=== PATIENT | female | born 1940 | race Hispanic/Latino ===

== ENCOUNTER → 2020-01-07 | Outpatient (CLI) | payer OTHER, MEDICARE | END | disposition home or self-care (01) | LOC: RAH 08:49 | PROVIDERS: ATTEND Internal Medicine | DX: Z01.818 Encounter for other preprocedural examination (principal) | CPT/HCPCS: 71046 ==

== ENCOUNTER 2020-06-23 09:00 | Emergency (ER) | payer OTHER, MEDICARE ==
[2020-06-23 09:28] LABS: ABG BASE EXCESS -7.3 mmol/L (-2.0-3.0); ABG HCO3 16.6 mmol/L (21.0-28.0); ABG OXYGEN SATURATION 96.1 % (95.0-99.0); ABG PCO2 30 mmHg (32-45)
[2020-06-23 09:44] LABS: BASOPHILS % (AUTO) 0.3 % (0.0-5.0); EOSINOPHILS % (AUTO) 0.3 % (0.0-8.0); HEMATOCRIT 41.3 % (36-48); LYMPHOCYTES % (AUTO) 30.2 % (21.0-51.0); MEAN CORPUSCULAR HEMOGLOBIN 29.7 pg (27.0-33.0); MEAN CORPUSCULAR HGB CONC 32.4 g/dL (32.0-36.0); MEAN CORPUSCULAR VOLUME 91.6 fL (79-99); MONOCYTES % (AUTO) 10.1 % (3.0-13.0); NEUTROPHILS % (AUTO) 58.8 % (40.0-77.0); PLATELET COUNT (AUTO) 172 K/uL (130-400); RED BLOOD CELL COUNT(AUTO) 4.51 MIL/uL (4.00-5.50); RED CELL DISTRIBUTION WIDTH 14.4 % (11.0-15.5); WHITE BLOOD COUNT (AUTO) 6.5 K/uL (4.8-10.8)
[2020-06-23 10:01] LABS: INR 0.88 (0.85-1.15); PROTHROMBIN TIME 9.6 SEC (9.6-11.6)
[2020-06-23 10:03] LABS: ALBUMIN 3.7 g/dL (3.5-5.0); BILIRUBIN,TOTAL 0.5 mg/dL (0.2-1.0); CREATININE 1.4 mg/dL (0.5-1.5); POTASSIUM 3.9 mmol/L (3.5-5.1); TOTAL PROTEIN, SERUM 8.3 g/dL (6.0-8.3)
[2020-06-23 10:28] LABS: B-TYPE NATRIURETIC PEPTIDE 22 pg/mL (0-100)
[2020-06-23] MEDS ORDERED: AZITHROMYCIN 500MG+NS 250ML 250 ML IV ONE (11:21)
[2020-06-23] MEDS ORDERED: CEFTRIAXONE SODIUM 1 GM ONE (11:21)
[2020-06-23] MEDS ORDERED: DEXAMETHASONE SOD PHOSPHATE 4 MG/ML 1ML VIAL ONE (11:21)
[2020-06-23 12:00] LABS: APPEARANCE,URINE CLOUDY (CLEAR); BILIRUBIN,URINE NEGATIVE (NEGATIVE); COLOR,URINE YELLOW (YELLOW); GLUCOSE, URINE (UA) NEGATIVE (NEGATIVE); KETONES,URINE NEGATIVE (NEGATIVE); LEUKOCYTE ESTERASE ,URINE TRACE (NEGATIVE); NITRATE,URINE NEGATIVE (NEGATIVE); OCCULT BLOOD,URINE SMALL (NEGATIVE); PH,URINE 5.5 (5.0-8.0); PROTEIN,URINE TRACE mg/dL (NEGATIVE); UROBILINOGEN,URINE 0.2 mg/dL (0.2-1.0)
[2020-06-23 12:14] LABS: RBC,URINE 0-1 /HPF (0-1)
[2020-06-23 12:15] LABS: BACTERIA,URINE Moderate /HPF (None Seen); MUCUS,URINE Rare LPF (None Seen); SQUAMOUS EPITHELIAL CELL,UR Moderate /HPF (0-2)
== END 2020-06-23 16:26 | disposition home or self-care (01) ==
LOC: EDH 09:00
DX: U07.1 COVID-19 (principal); R19.7 Diarrhea, unspecified; E13.9 Other specified diabetes mellitus without complications; I10 Essential (primary) hypertension; E78.5 Hyperlipidemia, unspecified; E66.01 Morbid (severe) obesity due to excess calories; Z68.41 Body mass index [BMI] 40.0-44.9, adult
CPT/HCPCS: 36415; 36600; 71045; 80053; 81001; 82550; 82803; 83605 ×2; 83880; 84484; 85025; 85610; 85730; 87040 ×2; 87077 ×2; 87088; 87186 ×2; 87426; 93005; 96365; 96366; 96375; 99285; J0456; J0696; J1100

== ENCOUNTER 2020-11-25 23:09 | Emergency (ER) | payer OTHER, MEDICARE ==
[2020-11-25] MEDS ORDERED: SODIUM CHLORIDE 0.9% 500ML 500 ML IV ONE (23:10)
[2020-11-26] MEDS ORDERED: HYDROCODONE/ACETAMINOPHEN 5/325 MG TAB ONE (00:58)
[2020-11-26 01:21] LABS: BASOPHILS % (AUTO) 0.4 % (0.0-5.0); EOSINOPHILS % (AUTO) 6.4 % (0.0-8.0); HEMATOCRIT 35.3 % (36-48); LYMPHOCYTES % (AUTO) 12.5 % (21.0-51.0); MEAN CORPUSCULAR HEMOGLOBIN 31.9 pg (27.0-33.0); MEAN CORPUSCULAR HGB CONC 32.6 g/dL (32.0-36.0); MEAN CORPUSCULAR VOLUME 98.1 fL (79-99); MONOCYTES % (AUTO) 10.6 % (3.0-13.0); NEUTROPHILS % (AUTO) 69.8 % (40.0-77.0); PLATELET COUNT (AUTO) 328 K/uL (130-400); RED CELL DISTRIBUTION WIDTH 13.6 % (11.0-15.5); WHITE BLOOD COUNT (AUTO) 7.2 K/uL (4.8-10.8)
[2020-11-26 01:29] LABS: CREATININE 1.8 mg/dL (0.5-1.5); POTASSIUM 4.3 mmol/L (3.5-5.1)
[2020-11-26 01:35] LABS: BILIRUBIN,TOTAL 0.9 mg/dL (0.2-1.0); TOTAL PROTEIN, SERUM 7.5 g/dL (6.0-8.3)
[2020-11-26] MEDS ORDERED: SODIUM CHLORIDE 0.9% 1000ML 1,000 ML IV ONE (01:59)
[2020-11-26] MEDS ORDERED: IOHEXOL-350 75 ML VIAL IV ONE (02:24)
== END 2020-11-26 08:12 | disposition home or self-care (01) ==
LOC: EDH 23:09
DX: R59.0 Localized enlarged lymph nodes (principal); I10 Essential (primary) hypertension; E78.5 Hyperlipidemia, unspecified; E11.9 Type 2 diabetes mellitus without complications; E07.9 Disorder of thyroid, unspecified
CPT/HCPCS: 36415; 70491; 80053; 85025; 99285; J7040; Q9967; J7030

== ENCOUNTER 2021-07-15 10:43 | Emergency (ER) | payer OTHER, MEDICARE ==
[~2021-07-15] VITALS: Ht 162.6 cm; Wt 78.9 kg
[2021-07-15 11:11] LABS: CREATININE 1.2 mg/dL (0.5-1.5); POTASSIUM 4.3 mmol/L (3.5-5.1)
[2021-07-15 11:12] LABS: BASOPHILS % (AUTO) 0.7 % (0.0-5.0); EOSINOPHILS % (AUTO) 12.3 % (0.0-8.0); HEMATOCRIT 32.8 % (36-48); LYMPHOCYTES % (AUTO) 30.9 % (21.0-51.0); MEAN CORPUSCULAR HGB CONC 32.9 g/dL (32.0-36.0); MEAN CORPUSCULAR VOLUME 97.3 fL (79-99); MONOCYTES % (AUTO) 12.6 % (3.0-13.0); NEUTROPHILS % (AUTO) 43.2 % (40.0-77.0); PLATELET COUNT (AUTO) 215 K/uL (130-400); RED BLOOD CELL COUNT(AUTO) 3.37 MIL/uL (4.00-5.50); RED CELL DISTRIBUTION WIDTH 13.2 % (11.0-15.5)
[2021-07-15 11:16] LABS: ALBUMIN 3.4 g/dL (3.5-5.0); BILIRUBIN,TOTAL 0.5 mg/dL (0.2-1.0); TOTAL PROTEIN, SERUM 7.1 g/dL (6.0-8.3)
[2021-07-15 12:05] LABS: BASOPHILS % (MANUAL) 1 % (0-2); EOSINOPHILS % (MANUAL) 8 % (1-6); LYMPHOCYTES % (MANUAL) 35 % (22-44); MAN.DIFF COMMENT-IMPRESSION MANUAL DIFFERENTIAL; MONOCYTES % (MANUAL) 10 % (2-9); PLATELET MORPHOLOGY COMMENT ADEQUATE; SEGMENTED NEUTROPHILS % 46 % (40-70)
[2021-07-15 13:43] LABS: APPEARANCE,URINE Clear (CLEAR); BILIRUBIN,URINE Negative (NEGATIVE); COLOR,URINE Yellow (YELLOW); GLUCOSE, URINE (UA) Negative (NEGATIVE); KETONES,URINE Negative (NEGATIVE); LEUKOCYTE ESTERASE ,URINE Moderate (NEGATIVE); NITRATE,URINE Positive (NEGATIVE); OCCULT BLOOD,URINE Negative (NEGATIVE); PROTEIN,URINE Negative (NEGATIVE); UROBILINOGEN,URINE 0.2 mg/dL (0.2-1.0)
[2021-07-15 14:10] LABS: BACTERIA,URINE Many /HPF (None Seen); RBC,URINE 0-1 /HPF (0-1); SQUAMOUS EPITHELIAL CELL,UR Rare /HPF (0-2)
[2021-07-15 15:39] VITALS: BP 119/55
[2021-07-15] MEDS ORDERED: DIPH25 PO (16:18)
[2021-07-15] MEDS ORDERED: NITR100C4 PO (16:46)
== END 2021-07-15 17:03 | disposition home or self-care (01) ==
LOC: EDH 10:43
DX: L23.9 Allergic contact dermatitis, unspecified cause (principal); L98.9 Disorder of the skin and subcutaneous tissue, unspecified; I10 Essential (primary) hypertension; E78.00 Pure hypercholesterolemia, unspecified; Z96.651 Presence of right artificial knee joint
CPT/HCPCS: 36415; 71046; 80053; 81001; 84443; 85025; 85651; 86140; 87077; 87088; 87186

== ENCOUNTER → 2021-10-20 | Outpatient (CLI) | payer OTHER, MEDICARE ==
[~2021-10-20] MED LIST: DIPH25 PO; NITR100C4 PO
== END | disposition home or self-care (01) ==
LOC: RAH 13:41
PROVIDERS: ATTEND Internal Medicine
DX: M19.011 Primary osteoarthritis, right shoulder (principal); Z98.890 Other specified postprocedural states
CPT/HCPCS: 73030

== ENCOUNTER 2022-02-15 20:45 | Inpatient (IN) | payer OTHER, MEDICARE ==
[~2022-02-15] VITALS: Ht 165.1 cm; Wt 87.2 kg
[2022-02-15 22:26] LABS: BASOPHILS % (AUTO) 0.4 % (0.0-5.0); EOSINOPHILS % (AUTO) 2.6 % (0.0-8.0); HEMATOCRIT 32.9 % (36-48); LYMPHOCYTES % (AUTO) 21.4 % (21.0-51.0); MEAN CORPUSCULAR HEMOGLOBIN 30.6 pg (27.0-33.0); MEAN CORPUSCULAR VOLUME 89.9 fL (79-99); MONOCYTES % (AUTO) 5.8 % (3.0-13.0); PLATELET COUNT (AUTO) 276 K/uL (130-400); RED BLOOD CELL COUNT(AUTO) 3.66 MIL/uL (4.00-5.50); RED CELL DISTRIBUTION WIDTH 14.1 % (11.0-15.5); WHITE BLOOD COUNT (AUTO) 5.3 K/uL (4.8-10.8)
[2022-02-15 22:28] LABS: APPEARANCE,URINE SL CLOUDY (CLEAR); BILIRUBIN,URINE SMALL (NEGATIVE); COLOR,URINE YELLOW (YELLOW); GLUCOSE, URINE (UA) NEGATIVE (NEGATIVE); KETONES,URINE 5 mg/dL (NEGATIVE); LEUKOCYTE ESTERASE ,URINE SMALL (NEGATIVE); NITRATE,URINE POSITIVE (NEGATIVE); OCCULT BLOOD,URINE NEGATIVE (NEGATIVE); PH,URINE 5.5 (5.0-8.0); PROTEIN,URINE TRACE mg/dL (NEGATIVE)
[2022-02-15] MEDS ORDERED: DILTIAZEM 25MG INJ IVP ONE (22:30)
[2022-02-15 22:36] LABS: BACTERIA,URINE Many /HPF (None Seen); RBC,URINE None Seen /HPF (0-1); SQUAMOUS EPITHELIAL CELL,UR 0-2 /HPF (0-2); WBC,URINE 26-50 /HPF (0-1)
[2022-02-15 22:37] LABS: CREATININE 1.6 mg/dL (0.5-1.5); POTASSIUM 3.5 mmol/L (3.5-5.1)
[2022-02-15 22:49] LABS: ALBUMIN 2.2 g/dL (3.5-5.0); BILIRUBIN,TOTAL 0.4 mg/dL (0.2-1.0); THYROID STIMULATING HORMONE 3.43 uIU/mL (0.36-3.74); TOTAL PROTEIN, SERUM 7.3 g/dL (6.0-8.3)
[2022-02-15] MEDS ORDERED: CEFTRIAXONE 1G VIAL IVP ONE (23:00)
[2022-02-15] MEDS ORDERED: HYDRALAZINE 20MG/ML VIAL IV PRN (23:30)
[2022-02-15] MEDS ORDERED: ONDANSETRON 4MG INJ IV PRN (23:30)
[2022-02-15] MEDS ORDERED: MORPHINE 4 MG SYG IV PRN (23:30)
[2022-02-15] MEDS ORDERED: LACTULOSE 20 GM/30 ML UDCUP PO PRN (23:30)
[2022-02-15] MEDS: CEFTRIAXONE 1G VIAL IV SCH (23:30)
[2022-02-15] MEDS ORDERED: MAG/ALUM/SIMETH 30 ML UDCUP PO PRN (23:30)
[2022-02-15] MEDS ORDERED: ACETAMINOPHEN 325 MG TAB PO PRN ×2 (23:30)
[2022-02-16 00:09] LABS: CHOLESTEROL 159 mg/dL (<200); HDL CHOLESTEROL 23 mg/dL (35-85); LDL DIRECT 102 mg/dL (0-99); TRIGLYCERIDES 187 mg/dL (30-200)
[2022-02-16 06:28] LABS: HEMATOCRIT 32.4 % (36-48); MEAN CORPUSCULAR HEMOGLOBIN 29.8 pg (27.0-33.0); MEAN CORPUSCULAR HGB CONC 33.3 g/dL (32.0-36.0); MEAN CORPUSCULAR VOLUME 89.5 fL (79-99); RED BLOOD CELL COUNT(AUTO) 3.62 MIL/uL (4.00-5.50); RED CELL DISTRIBUTION WIDTH 14.2 % (11.0-15.5); WHITE BLOOD COUNT (AUTO) 4.6 K/uL (4.8-10.8)
[2022-02-16 06:38] LABS: CREATININE 1.4 mg/dL (0.5-1.5); POTASSIUM 3.3 mmol/L (3.5-5.1)
[2022-02-16] MEDS: INSULIN HUMULIN R 100 UNIT/ML 3ML SQ SCH ×4 (07:30→21:00)
[2022-02-16] MEDS ORDERED: DULO30CA52 PO (08:17)
[2022-02-16] MEDS ORDERED: SIMV40TA59 PO (08:17)
[2022-02-16] MEDS ORDERED: PRAM0.129 PO (08:17)
[2022-02-16] MEDS ORDERED: LEVO137C4 PO (08:17)
[2022-02-16] MEDS: METOPROLOL TARTRATE 25 MG TAB PO SCH ×2 (08:24→21:13)
[2022-02-16] MEDS: ENOXAPARIN SODIUM 80 MG/0.8 ML SQ SCH ×2 (08:25→21:13)
[2022-02-16] MEDS ORDERED: METOPROLOL TARTRATE 25 MG TAB PO SCH (09:00)
[2022-02-16] MEDS ORDERED: KCL 20 MEQ ERTAB PO PRN (09:30)
[2022-02-16] MEDS ORDERED: POTASSIUM CHLORIDE 20MEQ/100ML 100 ML IV PRN (09:30)
[2022-02-16] MEDS ORDERED: POTASSIUM CHLORIDE 10% ELIXIR 20 MEQ/15 ML UDCUP PO PRN (09:30)
[2022-02-16] MEDS ORDERED: LIDOCAINE HCL-MPF 1% 2ML VIAL IV PRN (09:30)
[2022-02-16] MEDS ORDERED: AMIODARONE 900MG VIAL 360 MG in DEXTROSE 5%-WATER 200 ML IV SCH (14:30)
[2022-02-16] MEDS ORDERED: AMIODARONE 900MG VIAL 540 MG in DEXTROSE 5%-WATER 300 ML IV SCH (14:30)
[2022-02-16] MEDS ORDERED: AMIODARONE 900MG VIAL 150 MG in DEXTROSE 5%-WATER 100 ML IV SCH (14:30)
[2022-02-16 19:45] VITALS: BP 108/65
[2022-02-16] MEDS: AMIODARONE 900MG VIAL 540 MG in DEXTROSE 5%-WATER 300 ML IV SCH (21:19)
[2022-02-16] MEDS: CEFTRIAXONE 1G VIAL IV SCH (23:36)
[2022-02-17] VITALS (12 sets, daily range): BP systolic 92–118; BP diastolic 43–69
[2022-02-17] MEDS ORDERED: LORAZEPAM 0.5 MG TABLET PO ONE
[2022-02-17] MEDS: INSULIN HUMULIN R 100 UNIT/ML 3ML SQ SCH ×4 (07:30→21:02)
[2022-02-17] MEDS: METOPROLOL TARTRATE 25 MG TAB PO SCH ×2 (09:00→20:59)
[2022-02-17 09:08] LABS: BASOPHILS % (AUTO) 0.5 % (0.0-5.0); EOSINOPHILS % (AUTO) 3.3 % (0.0-8.0); HEMATOCRIT 33.2 % (36-48); LYMPHOCYTES % (AUTO) 10.5 % (21.0-51.0); MEAN CORPUSCULAR HGB CONC 32.8 g/dL (32.0-36.0); MEAN CORPUSCULAR VOLUME 91.5 fL (79-99); MONOCYTES % (AUTO) 3.4 % (3.0-13.0); NEUTROPHILS % (AUTO) 79.6 % (40.0-77.0); PLATELET COUNT (AUTO) 320 K/uL (130-400); RED BLOOD CELL COUNT(AUTO) 3.63 MIL/uL (4.00-5.50); RED CELL DISTRIBUTION WIDTH 14.4 % (11.0-15.5); WHITE BLOOD COUNT (AUTO) 5.5 K/uL (4.8-10.8)
[2022-02-17 09:20] LABS: CREATININE 1.4 mg/dL (0.5-1.5); PHOSPHORUS 3.2 mg/dL (2.5-4.9); POTASSIUM 4.6 mmol/L (3.5-5.1)
[2022-02-17] MEDS: ENOXAPARIN SODIUM 80 MG/0.8 ML SQ SCH ×2 (10:08→20:58)
[2022-02-17] MEDS: AMIODARONE 200 MG TABLET PO SCH (17:02)
[2022-02-17] MEDS: AMIODARONE 900MG VIAL 540 MG in DEXTROSE 5%-WATER 300 ML IV SCH (17:38)
[2022-02-17] MEDS ORDERED: SIMVASTATIN 20 MG TABLET PO SCH (21:00)
[2022-02-17] MEDS ORDERED: PRAMIPEXOLE DI-HCL 0.25 MG TABLET PO SCH (21:00)
[2022-02-17] MEDS ORDERED: DULOXETINE HCL 30 MG CAP PO SCH (21:00)
[2022-02-17] MEDS: CEFTRIAXONE 1G VIAL IV SCH (23:35)
[2022-02-18 00:10] VITALS: BP 100/50
[2022-02-18 04:15] VITALS: BP 120/55
[2022-02-18 04:51] LABS: BASOPHILS % (AUTO) 0.3 % (0.0-5.0); EOSINOPHILS % (AUTO) 2.3 % (0.0-8.0); HEMATOCRIT 31.1 % (36-48); LYMPHOCYTES % (AUTO) 8.3 % (21.0-51.0); MEAN CORPUSCULAR HEMOGLOBIN 29.4 pg (27.0-33.0); MEAN CORPUSCULAR HGB CONC 32.5 g/dL (32.0-36.0); MEAN CORPUSCULAR VOLUME 90.7 fL (79-99); MONOCYTES % (AUTO) 2.6 % (3.0-13.0); NEUTROPHILS % (AUTO) 84.3 % (40.0-77.0); PLATELET COUNT (AUTO) 315 K/uL (130-400); RED BLOOD CELL COUNT(AUTO) 3.43 MIL/uL (4.00-5.50); RED CELL DISTRIBUTION WIDTH 14.5 % (11.0-15.5); WHITE BLOOD COUNT (AUTO) 7.7 K/uL (4.8-10.8)
[2022-02-18 04:59] LABS: CREATININE 1.3 mg/dL (0.5-1.5); POTASSIUM 3.9 mmol/L (3.5-5.1)
[2022-02-18] MEDS: INSULIN HUMULIN R 100 UNIT/ML 3ML SQ SCH ×3 (06:27→16:30)
[2022-02-18] MEDS ORDERED: LEVOTHYROXINE 25 MCG TABLET PO SCH (06:30)
[2022-02-18] MEDS ORDERED: LEVOTHYROXINE 112 MCG TABLET PO SCH (06:30)
[2022-02-18 08:27] VITALS: BP 96/52
[2022-02-18] MEDS: AMIODARONE 900MG VIAL 540 MG in DEXTROSE 5%-WATER 300 ML IV SCH (08:30)
[2022-02-18] MEDS: METOPROLOL TARTRATE 25 MG TAB PO SCH (09:00)
[2022-02-18] MEDS: ENOXAPARIN SODIUM 80 MG/0.8 ML SQ SCH (09:51)
[2022-02-18] MEDS: AMIODARONE 200 MG TABLET PO SCH (10:10)
[2022-02-18 12:16] VITALS: BP 96/38
[2022-02-18 16:00] VITALS: BP 100/58
[2022-02-18] MEDS ORDERED: APIX2.5T PO (17:46)
[2022-02-18] MEDS ORDERED: CEPH500B PO (17:46)
[2022-02-18] MEDS ORDERED: AMIO200T44 PO (17:46)
[2022-02-18] MEDS ORDERED: METO25 PO (17:46)
== END 2022-02-18 18:48 | disposition home or self-care (01) | DRG 309 ==
LOC: EDH 20:45 → EDHIP 23:20 → 4DH 02-16 20:17 → 2BH 02-17 08:26 → 2DH 02-17 16:39
PROVIDERS: ADMIT Hospitalist; ATTEND Hospitalist
DX: I48.91 Unspecified atrial fibrillation (principal); D68.59 Other primary thrombophilia; N39.0 Urinary tract infection, site not specified; M54.2 Cervicalgia; E11.65 Type 2 diabetes mellitus with hyperglycemia; Z20.822 Contact with and (suspected) exposure to COVID-19; E03.9 Hypothyroidism, unspecified; E78.00 Pure hypercholesterolemia, unspecified; B96.20 Unspecified Escherichia coli [E. coli] as the cause of diseases classified elsewhere; F41.9 Anxiety disorder, unspecified; Z85.810 Personal history of malignant neoplasm of tongue; Z85.89 Personal history of malignant neoplasm of other organs and systems
CPT/HCPCS: 36415; 71045; 80048; 80053; 80061; 81001; 82948; 83036; 83735; 83880; 84100; 84443; 84484; 85025; 85027; 87077; 87088; 87186; 87635; 92610; 93005; 93306; 93356; C9803; G0378; J0282; J0696; J1650; J1815; J7060

== ENCOUNTER 2022-08-22 16:00 | Emergency (ER) | payer OTHER, MEDICARE ==
[~2022-08-22] VITALS: Ht 165.1 cm; Wt 79.4 kg
[~2022-08-22 16:00] MED LIST changes: +AMIO200T44 PO; +APIX2.5T PO; +CEPH500B PO; -DIPH25 PO; +DULO30CA52 PO; +LEVO137C4 PO; +METO25 PO; -NITR100C4 PO; +PRAM0.129 PO; +SIMV40TA59 PO
[2022-08-22 17:18] LABS: MEAN CORPUSCULAR HEMOGLOBIN 31.1 pg (27.0-33.0); MEAN CORPUSCULAR HGB CONC 31.4 g/dL (32.0-36.0); MEAN CORPUSCULAR VOLUME 98.9 fL (79-99); RED BLOOD CELL COUNT(AUTO) 3.54 MIL/uL (4.00-5.50); RED CELL DISTRIBUTION WIDTH 14.9 % (11.0-15.5); WHITE BLOOD COUNT (AUTO) 5.8 K/uL (4.8-10.8)
[2022-08-22 17:30] LABS: CREATININE 1.2 mg/dL (0.5-1.5); POTASSIUM 4.2 mmol/L (3.5-5.1)
[2022-08-22 17:35] LABS: ALBUMIN 3.8 g/dL (3.5-5.0); TOTAL PROTEIN, SERUM 7.2 g/dL (6.0-8.3)
[2022-08-22 17:39] LABS: APPEARANCE,URINE CLEAR (CLEAR); BILIRUBIN,URINE NEGATIVE (NEGATIVE); COLOR,URINE LIGHT-YELLOW (YELLOW); GLUCOSE, URINE (UA) NEGATIVE (NEGATIVE); KETONES,URINE NEGATIVE (NEGATIVE); LEUKOCYTE ESTERASE ,URINE NEGATIVE Leu/uL (NEGATIVE); NITRATE,URINE NEGATIVE (NEGATIVE); OCCULT BLOOD,URINE NEGATIVE (NEGATIVE); PH,URINE 7.5 (5.0-8.0); PROTEIN,URINE NEGATIVE (NEGATIVE); UROBILINOGEN,URINE 0.2 mg/dL (0.2-1.0)
[2022-08-22] MEDS ORDERED: IOHEXOL 350 MG/ML 100ML INFUS..BTL IV ONE (22:17)
[2022-08-23 00:38] VITALS: BP 151/59
== END 2022-08-23 01:19 | disposition home or self-care (01) ==
LOC: EDH 16:00
DX: R06.00 Dyspnea, unspecified (principal); I10 Essential (primary) hypertension; E11.9 Type 2 diabetes mellitus without complications; Z85.9 Personal history of malignant neoplasm, unspecified; Z79.01 Long term (current) use of anticoagulants; Z90.49 Acquired absence of other specified parts of digestive tract; Z20.822 Contact with and (suspected) exposure to COVID-19
CPT/HCPCS: 99285; 71270; 71045; 87635; 84484; 80053; 83880; 85027; 85378; 87880; 87804 ×2; 81003; 36415; 93005; C9803; Q9967

== ENCOUNTER 2022-10-01 12:28 | Emergency (ER) | payer OTHER, MEDICARE ==
[~2022-10-01] VITALS: Ht 162.6 cm; Wt 79.4 kg
[2022-10-01 15:25] LABS: BASOPHILS % (AUTO) 0.9 % (0.0-5.0); EOSINOPHILS % (AUTO) 1.9 % (0.0-8.0); LYMPHOCYTES % (AUTO) 18.6 % (21.0-51.0); MEAN CORPUSCULAR HEMOGLOBIN 30.9 pg (27.0-33.0); MEAN CORPUSCULAR HGB CONC 31.4 g/dL (32.0-36.0); MEAN CORPUSCULAR VOLUME 98.7 fL (79-99); MONOCYTES % (AUTO) 9.7 % (3.0-13.0); NEUTROPHILS % (AUTO) 68.5 % (40.0-77.0); PLATELET COUNT (AUTO) 286 K/uL (130-400); RED BLOOD CELL COUNT(AUTO) 3.75 MIL/uL (4.00-5.50); RED CELL DISTRIBUTION WIDTH 15.3 % (11.0-15.5); WHITE BLOOD COUNT (AUTO) 6.9 K/uL (4.8-10.8)
[2022-10-01 15:30] VITALS: BP 138/66
[2022-10-01 15:33] LABS: CREATININE 1.1 mg/dL (0.5-1.5); POTASSIUM 3.7 mmol/L (3.5-5.1)
[2022-10-01 15:42] LABS: ALBUMIN 3.4 g/dL (3.5-5.0); TOTAL PROTEIN, SERUM 7.6 g/dL (6.0-8.3)
[2022-10-01 16:34] LABS: APPEARANCE,URINE CLEAR (CLEAR); BILIRUBIN,URINE NEGATIVE (NEGATIVE); COLOR,URINE LIGHT-YELLOW (YELLOW); GLUCOSE, URINE (UA) NEGATIVE (NEGATIVE); KETONES,URINE NEGATIVE (NEGATIVE); LEUKOCYTE ESTERASE ,URINE NEGATIVE Leu/uL (NEGATIVE); NITRATE,URINE NEGATIVE (NEGATIVE); OCCULT BLOOD,URINE NEGATIVE (NEGATIVE); PH,URINE 6.5 (5.0-8.0); PROTEIN,URINE NEGATIVE (NEGATIVE); UROBILINOGEN,URINE 0.2 mg/dL (0.2-1.0)
[2022-10-01 16:39] LABS: BACTERIA,URINE RARE /HPF (None Seen); RBC,URINE 0-1 /HPF (0-1); SQUAMOUS EPITHELIAL CELL,UR RARE /HPF (0-2); WBC,URINE 0-1 /HPF (0-1)
== END 2022-10-01 17:00 | disposition home or self-care (01) ==
LOC: EDH 12:28
DX: S01.111A Laceration without foreign body of right eyelid and periocular area, initial encounter (principal); S40.022A Contusion of left upper arm, initial encounter; S40.021A Contusion of right upper arm, initial encounter; I10 Essential (primary) hypertension; E11.9 Type 2 diabetes mellitus without complications; E03.9 Hypothyroidism, unspecified; F41.9 Anxiety disorder, unspecified; Z90.49 Acquired absence of other specified parts of digestive tract; Z96.651 Presence of right artificial knee joint; Z98.890 Other specified postprocedural states; W01.0XXA Fall on same level from slipping, tripping and stumbling without subsequent striking against object, initial encounter; Y93.02 Activity, running; Y92.39 Other specified sports and athletic area as the place of occurrence of the external cause; Y99.8 Other external cause status
CPT/HCPCS: 36415; 70450; 70486; 71045; 72125; 80053; 81001; 84484; 85025; 93005

== ENCOUNTER 2023-08-29 20:18 | Emergency (ER) | payer OTHER, MEDICARE | END 2023-08-29 22:16 | disposition left against medical advice (07) | LOC: EDH 20:18 | DX: R21 Rash and other nonspecific skin eruption (principal); Z53.21 Procedure and treatment not carried out due to patient leaving prior to being seen by health care provider ==

== ENCOUNTER 2023-12-23 17:09 | Emergency (ER) | payer OTHER, MEDICARE ==
[~2023-12-23] VITALS: Ht 160 cm; Wt 77.1 kg
[2023-12-23 18:16] LABS: BASOPHILS # (AUTO) 0.04 K/uL (0.00-0.20); BASOPHILS % (AUTO) 0.9 % (0.0-5.0); EOSINOPHILS % (AUTO) 4.3 % (0.0-8.0); HEMATOCRIT 29.1 % (36-48); IMMATURE GRANULOCYTE ABSOLUTE 0.01 K/uL (0-1); LYMPHOCYTES # (AUTO) 1.1 K/uL (1.0-4.8); LYMPHOCYTES % (AUTO) 23.8 % (21.0-51.0); MEAN CORPUSCULAR HEMOGLOBIN 30.2 pg (27.0-33.0); MEAN CORPUSCULAR HGB CONC 32.6 g/dL (32.0-36.0); MEAN CORPUSCULAR VOLUME 92.4 fL (79-99); MONOCYTES # (AUTO) 0.6 K/uL (0.1-1.0); MONOCYTES % (AUTO) 13.9 % (3.0-13.0); NEUTROPHILS # (AUTO) 2.6 K/uL (1.8-7.7); NEUTROPHILS % (AUTO) 56.9 % (40.0-77.0); PLATELET COUNT (AUTO) 244 K/uL (130-400); RED BLOOD CELL COUNT(AUTO) 3.15 MIL/uL (4.00-5.50); RED CELL DISTRIBUTION WIDTH 14.1 % (11.0-15.5); WHITE BLOOD COUNT (AUTO) 4.6 K/uL (4.8-10.8)
[2023-12-23 18:29] LABS: CREATININE 1.9 mg/dL (0.5-1.0); POTASSIUM 3.8 mmol/L (3.5-5.1)
[2023-12-23 18:34] LABS: ALBUMIN 3.3 g/dL (3.5-5.0); BILIRUBIN,TOTAL 0.5 mg/dL (0.2-1.0); MAGNESIUM 2.1 mg/dL (1.80-2.40); TOTAL PROTEIN, SERUM 7.1 g/dL (6.0-8.3)
[2023-12-23 18:36] LABS: B-TYPE NATRIURETIC PEPTIDE 149 pg/mL (0-100)
[2023-12-23] MEDS: FUROSEMIDE 100MG VIAL IVP ONE (18:40)
[2023-12-23 19:22] VITALS: BP 135/71; PULSE 75; RESP 20; O2SAT 99
== END 2023-12-23 19:58 | disposition home or self-care (01) ==
LOC: EDH 17:09
DX: M79.89 Other specified soft tissue disorders (principal); D63.1 Anemia in chronic kidney disease; E11.22 Type 2 diabetes mellitus with diabetic chronic kidney disease; N18.9 Chronic kidney disease, unspecified; I21.9 Acute myocardial infarction, unspecified; E03.9 Hypothyroidism, unspecified; E78.00 Pure hypercholesterolemia, unspecified; Z79.899 Other long term (current) drug therapy; Z90.49 Acquired absence of other specified parts of digestive tract; Z98.890 Other specified postprocedural states
CPT/HCPCS: 99285; 96374; 71045; 83735; 84484; 80053; 83880; 85025; 36415; 93005; J1940

== ENCOUNTER 2024-05-17 16:04 | Emergency (ER) | payer OTHER, MEDICARE ==
[~2024-05-17] VITALS: Ht 162.6 cm; Wt 94.8 kg
[~2024-05-17 16:04] MED LIST changes: +ACET-66 PO; -AMIO200T44 PO; -CEPH500B PO; +CHOL100040 PO; -DULO30CA52 PO; +FURO20TA4 PO; -LEVO137C4 PO; +LEVO137T2 PO; +OMEP20CA12 PO
[2024-05-17 16:06] VITALS: TEMP 98.2
[2024-05-17 16:31] LABS: BASOPHILS # (AUTO) 0.03 K/uL (0.00-0.20); BASOPHILS % (AUTO) 0.8 % (0.0-5.0); EOSINOPHILS # (AUTO) 0.16 K/uL (0.00-0.70); EOSINOPHILS % (AUTO) 4.5 % (0.0-8.0); HEMATOCRIT 30.3 % (36-48); LYMPHOCYTES # (AUTO) 1.4 K/uL (1.0-4.8); LYMPHOCYTES % (AUTO) 38.2 % (21.0-51.0); MEAN CORPUSCULAR HEMOGLOBIN 30.7 pg (27.0-33.0); MEAN CORPUSCULAR HGB CONC 32.7 g/dL (32.0-36.0); MEAN CORPUSCULAR VOLUME 94.1 fL (79-99); MONOCYTES # (AUTO) 0.5 K/uL (0.1-1.0); MONOCYTES % (AUTO) 14.2 % (3.0-13.0); NEUTROPHILS # (AUTO) 1.5 K/uL (1.8-7.7); NEUTROPHILS % (AUTO) 42.3 % (40.0-77.0); PLATELET COUNT (AUTO) 230 K/uL (130-400); RED BLOOD CELL COUNT(AUTO) 3.22 MIL/uL (4.00-5.50); RED CELL DISTRIBUTION WIDTH 14.1 % (11.0-15.5); WHITE BLOOD COUNT (AUTO) 3.6 K/uL (4.8-10.8)
[2024-05-17 16:43] LABS: CREATININE 1.8 mg/dL (0.5-1.0); POTASSIUM 3.5 mmol/L (3.5-5.1)
[2024-05-17 17:42] LABS: APPEARANCE,URINE CLEAR (CLEAR); BILIRUBIN,URINE NEGATIVE (NEGATIVE); COLOR,URINE YELLOW (YELLOW); GLUCOSE, URINE (UA) NEGATIVE (NEGATIVE); KETONES,URINE NEGATIVE (NEGATIVE); LEUKOCYTE ESTERASE ,URINE 250 Leu/uL (NEGATIVE); NITRATE,URINE NEGATIVE (NEGATIVE); PROTEIN,URINE 10 mg/dL (NEGATIVE); UROBILINOGEN,URINE 0.2 mg/dL (0.2-1.0)
[2024-05-17 17:43] LABS: ADD UA MICROSCOPIC YES
[2024-05-17 17:52] LABS: BACTERIA,URINE RARE /HPF (None Seen); MUCUS,URINE RARE LPF (None Seen); SQUAMOUS EPITHELIAL CELL,UR MOD /HPF (0-2)
[2024-05-17] MEDS: furoSEMIDE 40MG VIAL IV ONE (18:47)
[2024-05-17 19:12] VITALS: BP 133/41; PULSE 75; RESP 16; O2SAT 96
== END 2024-05-17 19:59 | disposition home or self-care (01) ==
LOC: EDH 16:04
DX: R60.0 Localized edema (principal); E11.9 Type 2 diabetes mellitus without complications; E03.9 Hypothyroidism, unspecified; E78.00 Pure hypercholesterolemia, unspecified; Z88.1 Allergy status to other antibiotic agents; Z79.899 Other long term (current) drug therapy; Z85.810 Personal history of malignant neoplasm of tongue; Z90.49 Acquired absence of other specified parts of digestive tract; Z98.890 Other specified postprocedural states
CPT/HCPCS: 99285; 96374; 71045; 84484; 80048; 83880; 85025; 87086 ×2; 87186; 81001; 36415; 93005; J1940

== ENCOUNTER → 2024-05-30 | Outpatient (CLI) | payer OTHER, MEDICARE | END | disposition home or self-care (01) | LOC: SHCH 12:58 | PROVIDERS: ATTEND Student in an Organized Health Care Education/Training Program | DX: I87.2 Venous insufficiency (chronic) (peripheral) (principal); I73.9 Peripheral vascular disease, unspecified | CPT/HCPCS: 93925; 93970 ==

== ENCOUNTER 2024-07-09 14:14 | Inpatient (IN) | payer OTHER, MEDICARE ==
[~2024-07-09] VITALS: Ht 160 cm; Wt 82.6 kg
[~2024-07-09 14:14] MED LIST changes: +BUME1TAB6 PO; +FAMO20TA8 PO; -FURO20TA4 PO; +LEVO250T75 PO; -SIMV40TA59 PO; +TRIP30O TP
--- NOTE | 2024-07-09 14:29 | EKG ---
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
[2024-07-09 15:09] LABS: SARS-CoV-2, RNA, NAAT NEGATIVE SARS CoV-2 (NEGATIVE)
[2024-07-09 15:15] LABS: INFLUENZA TYPE A Negative For Type A (NEGATIVE); INFLUENZA TYPE B Negative For Type B (NEGATIVE)
[2024-07-09 15:24] LABS: BASOPHILS # (AUTO) 0.02 K/uL (0.00-0.20); BASOPHILS % (AUTO) 0.5 % (0.0-5.0); EOSINOPHILS # (AUTO) 0.05 K/uL (0.00-0.70); EOSINOPHILS % (AUTO) 1.1 % (0.0-8.0); HEMATOCRIT 33.3 % (36-48); LYMPHOCYTES # (AUTO) 0.6 K/uL (1.0-4.8); LYMPHOCYTES % (AUTO) 14.3 % (21.0-51.0); MEAN CORPUSCULAR HEMOGLOBIN 30.9 pg (27.0-33.0); MEAN CORPUSCULAR VOLUME 93.5 fL (79-99); MONOCYTES # (AUTO) 0.5 K/uL (0.1-1.0); MONOCYTES % (AUTO) 11.5 % (3.0-13.0); NEUTROPHILS # (AUTO) 3.2 K/uL (1.8-7.7); NEUTROPHILS % (AUTO) 72.6 % (40.0-77.0); PLATELET COUNT (AUTO) 155 K/uL (130-400); RED BLOOD CELL COUNT(AUTO) 3.56 MIL/uL (4.00-5.50); RED CELL DISTRIBUTION WIDTH 14.6 % (11.0-15.5); WHITE BLOOD COUNT (AUTO) 4.4 K/uL (4.8-10.8)
[2024-07-09] MEDS: levoFLOXacin 500 MG/D5W 100 ML 100 ML IV STA (15:27)
[2024-07-09] MEDS: 0.9%NACL 1000ML 2,448 ML IV ONE (15:27)
[2024-07-09 15:30] LABS: CREATININE 1.8 mg/dL (0.5-1.0); POTASSIUM 3.9 mmol/L (3.5-5.1)
--- NOTE | 2024-07-09 16:15 | ERN ---
General Chief Complaint: Cough Stated Complaint: CONGESTED,WEAK, COUGHING Time Seen by MD: 14:16 Source: patient, family History of Present Illness Initial Comments PATIENT IS AN 84-YEAR-OLD FEMALE COMING IN TO BE EVALUATED FOR FEVER AND COUGH. PER PATIENT'S SYMPTOMS BEGAN THREE DAYS AGO. PATIENT DOES HAVE A HISTORY OF PNEUMONIA. Allergies: Coded Allergies: ceftriaxone (Verified Allergy, Intermediate, 12/28/23) Rash Home Meds Active Scripts Levofloxacin (Levofloxacin) 250 Mg Tablet, 1 TAB PO DAILY for 10 Days, #10 TAB 0 Refills Prov:UDAY ALEXANDER LABORER [employer]UMIN[employer]AVING 06/19/24 Neomy Sulf/Bacitrac Zn/Poly (Triple Antibiotic/Neosporin Oint) 3.5 Mg-400 Unit- 5,000 Unit/Gram Oint, 0 APPL TP BID, #1 TUBE apply TID to affected area Prov:BRYNN ALEXANDERMyra Alba LABORER [employer] 06/19/24 Metoprolol Tartrate (Lopressor) 25 Mg Tab, 12.5 MG PO BID, #60 TAB Prov:YAA ALEXANDERYNA Parth LABORER [employer] 06/19/24 Famotidine (Famotidine) 20 Mg Tablet, 20 MG PO DAILY, #60 TAB Prov:UDAY ALEXANDER Parth LABORER [employer] 24 Bumetanide (Bumetanide) 1 Mg Tablet, 2 MG PO BID, #60 TAB Prov:UDAY ALEXANDER Parth LABORER [employer] 24 Apixaban (Eliquis) 2.5 Mg Tablet, 2.5 MG PO BID for 30 Days, #60 TAB Prov:MIO SAUER Jr., MD 02/18/22 Reported Medications Pramipexole Di-HCl (Pramipexole Dihydrochloride) 0.125 Mg Tablet, 0.125 MG PO HS, TAB 06/13/24 Cholecalciferol (Vitamin D3) (Vitamin D3) 25 Mcg (1000 Unit) Capsule, 1 CAP PO QWEEK for 30 Days, #30 CAP 0 Refills 06/13/24 Acetaminophen (Acetaminophen) 500 Mg Tablet, 500 MG PO Q6HPRN, TAB 12/28/23 Omeprazole (Omeprazole) 20 Mg Capsule.dr, 20 MG PO DAILY, CAP 12/28/23 Levothyroxine Sodium (Levothyroxine Sodium) 137 Mcg Tablet, 137 MCG PO ACBKFST, TAB 12/28/23 Past Medical History Past Medical History: CAD, Diabetes-Type II, High Cholesterol, Hypothyroid, Other Medical History Other: CA TONGUE RLS Past Surgical History: Cholecystectomy, Other Surgical History Other: KNEE HIP SPINE TONGUE Social History Social History: Lives with family, Other Female( History) History: Not Applicable ROS Dictation CONSTITUTIONAL: NO CHILLS, NO FEVER, NO WEAKNESS, NO DIAPHORESIS, NO MALAISE. HEAD/FACE: NO SIGNS OF TRAUMA. EENT: NO EYE PAIN, NO BLURRED VISION, NO TEARING, NO DOUBLE VISION, NO EAR PAIN, NO EAR DISCHARGE, NO NOSE PAIN, NO NASAL CONGESTION, NO THROAT PAIN, NO THROAT SWELLING, NO MOUTH PAIN. RESPIRATORY: COUGH, NO ORTHOPNEA, SOB, STRIDOR, NO WHEEZING. CARDIOVASCULAR: NO CHEST PAIN, NO EDEMA, NO PALPITATIONS, NO SYNCOPE. GASTROINTESTINAL/ABDOMINAL: NO ABDOMINAL PAIN, NO CONSTIPATION, NO DIARRHEA, NO NAUSEA, NO VOMITING. GENITOURINARY: NO ABNORMAL DISCHARGE, NO DYSURIA, NO FREQUENT URINATION, NO HEMATURIA. NO COMPLAINTS OF PAIN IN THE GENITALS. MUSCULOSKELETAL: NO BACK PAIN, NO GOUT, NO JOINT PAIN, NO JOINT SWELLING, NO MUSCLE PAIN, NO MUSCLE STIFFNESS, NO NECK PAIN. INTEGUMENTARY: NO CHANGE IN COLOR, NO CHANGE IN HAIR/NAILS, NO DRYNESS, NO LESION, NO LUMPS, NO RASH. NEUROLOGICAL/PSYCH: NO ANXIETY, NOT DEPRESSED, NO EMOTIONAL PROBLEM, NO HE ADACHE, NO NUMBNESS, NO PRE-EXISTING DEFICIT, NO HISTORY OF SEIZURES, NO TREMORS, NO WEAKNESS. HEMATOLOGIC/LYMPHATIC: NOT ANEMIC, NO HISTORY OF BLOOD CLOTS, NO APPARENT BLEEDING, NO BRUISING, GLANDS NOT SWOLLEN. ALL SYSTEMS NEGATIVE, EXCEPT NOTED. Physical Exam Physical Exam Dictation VITAL SIGNS: REVIEWED. GENERAL APPEARANCE: ALERT, ORIENTED X3, NO ACUTE DISTRESS, OBESE. HEAD AND FACE: NON-TRAUMATIC. EYES: PERRL, PINK CONJUNCTIVAS, EYELID NO TRAUMA, ANTERIOR CHAMBER CLEAR. EARS: PINNAS INTACT AND NO SIGNS OF TRAUMA OR ERYTHEMA. EAR CANALS CLEAR AND NO DISCHARGE. TMS NO ERYTHEMA. NOSE: NO DISCHARGE, NO BLEEDING. OROPHARYNX: MOUTH NORMAL, TEETH NO CARIES, TONGUE PINK. PHARYNX CLEAR, NO ERYTHEMA. TONSILS NO EXUDATES, NO ABSCESSES NOTED. MUCOUS MEMBRANE MOIST. NECK: SUPPLE, NON-TENDER, NO THYROMEGALY, NO MASSES, NO JVD, NO BRUITS. BREAST: DEFERRED. CHEST: NO TENDERNESS, NO CREPITUS, NO PARADOXICAL MOVEMENT, NO RETRACTIONS. LUNGS: CLEAR, WELL-VENTILATED, SYMMETRIC, RALES, WHEEZING, RHONCHI, NO STRIDOR, GOOD BREATH SOUNDS BILATERALLY. HEART: REGULAR RATE, REGULAR RHYTHM, NO MURMUR, NO GALLOPS. VASCULAR: NO PERIPHERAL EDEMA. ABDOMEN: SOFT, POSITIVE BOWEL SOUNDS, NONDISTENDED, NO GUARDING, NONTENDER, NO REBOUND, NO MASSES NO HEPATOMEGALY, NO SPLENOMEGALY, NO HERNANDEZ'S SIGN, NO HERNIAS. RECTAL: DEFERRED. GENITAL: DEFERRED. NEUROLOGICAL: NORMAL SPEECH, GROSS MOTOR FUNCTION INTACT, GROSS SENSORY FUNCTION INTACT. MUSCULOSKELETAL: NECK NONTENDER, FULL RANGE OF MOTION, BACK NONTENDER, FULL RANGE OF MOTION. EXTREMITIES: NONTENDER, FULL RANGE OF MOTION. SKIN: COLOR PINK, DRY, NO TURGOR, NO RASH, NO LACERATIONS, NO ABRASIONS, NO CONTUSIONS. LYMPHATICS: DEFERRED. Results Laboratory and Microbiology Lab and Micro Result Laboratory Tests Test 07/09/24 14:20 07/09/24 15:12 Influenza Type A Antigen Negative For Type A Influenza Type B Antigen Negative For Type B SARS-CoV-2, RNA, NAAT NEGATIVE SARS CoV-2 White Blood Count 4.4 K/uL (4.8-10.8) L Red Blood Count 3.56 MIL/uL (4.00-5.50) L Hemoglobin 11.0 g/dL (12.0-16.0) L Hematocrit 33.3 % (36-48) L Mean Corpuscular Volume 93.5 fL (79-99) Mean Corpuscular Hemoglobin 30.9 pg (27.0-33.0) Mean Corpuscular Hemoglobin Concent 33.0 g/dL (32.0-36.0) Red Cell Distribution Width 14.6 % (11.0-15.5) Platelet Count 155 K/uL (130-400) Mean Platelet Volume 9.7 fL (7.5-10.5) Immature Granulocyte % (Auto) 0.0 % (0-1) Neutrophils (%) (Auto) 72.6 % (40.0-77.0) Lymphocytes (%) (Auto) 14.3 % (21.0-51.0) L Monocytes (%) (Auto) 11.5 % (3.0-13.0) Eosinophils (%) (Auto) 1.1 % (0.0-8.0) Basophils (%) (Auto) 0.5 % (0.0-5.0) Neutrophils # (Auto) 3.2 K/uL (1.8-7.7) Lymphocytes # (Auto) 0.6 K/uL (1.0-4.8) L Monocytes # (Auto) 0.5 K/uL (0.1-1.0) Eosinophils # (Auto) 0.05 K/uL (0.00-0.70) Basophils # (Auto) 0.02 K/uL (0.00-0.20) Absolute Immature Granulocyte (auto 0.00 K/uL (0-1) Nucleated Red Blood Cells 0.0 % (0.0-0.19) Sodium Level 136 mmol/L (136-145) Potassium Level 3.9 mmol/L (3.5-5.1) Chloride Level 97 mmol/L (101-111) L Carbon Dioxide Level 32 mmol/L (21-32) Blood Urea Nitrogen 23 mg/dL (7-18) H Creatinine 1.8 mg/dL (0.5-1.0) H Glomerular Filtration Rate Calc 28 mL/min (>90) Random Glucose 128 mg/dL (70-105) H Lactic Acid Level 2.0 mmol/L (0.8-2.5) Total Calcium 9.0 mg/dL (8.5-10.1) Total Creatine Kinase 100 U/L (21-232) # Troponin I High Sensitivity 8 ng/L (4-50) Labs Reviewed?: Yes EKG/XRAY/US/CT/MRI EKG Comment 07/09/2020 TIME 2:24 P.M. VENTRICULAR RATE [address] WAVE ELEVATION OR DEPRESSION [place] 169 X-RAY Comment CHEST X-RAY-RIGHT LUNG INFILTRATE SUGGESTIVE OF AN PNEUMONIA MDM MDM: DIFFERENTIAL DIAGNOSIS: SEPSIS, UTI, RIGHT LUNG PNEUMONIA RATIONALE: TESTS CONSIDERED AND ORDERED SECONDARY TO SHARED DECISION MAKING INCLUDE: LABS, ECG AND RADIOLOGY PREVIOUS OUTSIDE RECORDS REVIEWED: OLD ER VISITS. RISK OF COMPLICATION AND/OR MORBIDITY OR MORTALITY OF PATIENT MANAGEMENT: NONE MEDICATIONS-PER MEDICATION RECONCILIATION NEED FOR HOSPITALIZATION: PATIENT DOES MEET CRITERIA FOR HOSPITALIZATION. NEED FOR EMERGENCY MAJOR/MINOR SURGERY: NO THERE ARE NO SOCIAL CONCERNS WITH THIS PATIENT. PRESCRIPTION DRUG MANAGEMENT PRESCRIPTIONS WILL INCLUDE SYMPTOMATIC CARE PATIENT'S PRIOR EXTERNAL MEDICAL RECORDS FROM OTHER ER VISITS WERE REVIEWED BY ME INDICATED. PRIOR TESTING AND RESULTS FROM PREVIOUS VISITS WERE REVIEWED. PRIOR TESTS WERE TAKEN INTO ACCOUNT WITH MEDICAL DECISION MAKING AND RESOURCE UTILIZATION, INDEPENDENT HISTORIAN/HISTORIANS WERE USED TO OBTAIN COMPLETE MEDICAL HISTORY. I INDEPENDENTLY INTERPRETED THE TEST THAT WERE PERFORMED, RESULTS WERE REVIEWED BY ME AND CONSIDERED FINDINGS ON RADIOLOGY IF ORDERED. MEDICAL MANAGEMENT AND EXAMINATION INTERPRETATION DISCUSSIONS WERE HAD BY ME WITH OTHER QUALIFIED HEALTHCARE PROFESSIONALS INDICATED FOR THE PATIENT'S CARE. ED Course Orders Procedure Category Date Status Time Covid Rna Naat LAB 07/09/24 Complete 14:21 Influenza Type A & B, LAB 07/09/24 Complete Rapid 14:21 12 Lead Ekg Tracing- EKG 07/09/24 Complete Technical 14:21 Chest 1vw RAD 07/09/24 Taken 14:21 Cbc With Differential LAB 07/09/24 Complete 14:21 Basic Metabolic Panel LAB 07/09/24 Complete 14:21 Blood Cult CHASTITY 07/09/24 Logged 14:21 Blood Cult [facility]ASTITY 07/09/24 In Process 14:22 Urinalysis Profile LAB 07/09/24 In Process 14:22 Culture Urine CHASTITY 07/09/24 In Process 14:22 0.9%Nacl 1000ml (Ns PHA 07/09/24 In Process 1000ml) 14:30 Troponin I High LAB 07/09/24 Complete Sensitivity 14:22 Lactic Acid LAB 07/09/24 Complete 14:22 Levofloxacin 500 PHA 07/09/24 Complete Mg/D5w 100 Ml 14:25 Creatine Kinase, Total LAB 07/09/24 Complete 14:21 Current Medications Medications (Trade) Dose Ordered Sig/Meggan Route PRN Reason Start Time Stop Time Status Last Admin Dose Admin Levofloxacin/ Dextrose 100 ml @ 100 mls/hr Q24H STAT IV 07/09/24 14:25 07/09/24 15:24 DC 07/09/24 15:27 Sodium Chloride 2,448 ml @ 816 mls/hr ONCE ONCE IV 07/09/24 14:30 07/09/24 17:29 07/09/24 15:27 Vital Signs Date Time Temp Pulse Resp B/P (MAP) Pulse Ox O2 Delivery O2 Flow Rate FiO2 07/09/24 16:00 99.3 84 20 155/74 95 Room Air* 0 21 07/09/24 14:16 101.5 89 18 117/62 98 Room Air 0 Critical Care Note Comments CRITICAL CARE PROCEDURE NOTE AUTHORIZED AND PERFORMED BY: ME TOTAL CRITICAL CARE TIME: APPROXIMATELY 36 MINUTES DUE TO A HIGH PROBABILITY OF CLINICALLY SIGNIFICANT, LIFE THREATENING DETERIORATION, THE PATIENT REQUIRED MY HIGHEST LEVEL OF PREPAREDNESS TO INTERVENE EMERGENTLY AND I PERSONALLY SPENT THIS CRITICAL CARE TIME DIRECTLY AND PERSONALLY MANAGING THE PATIENT. THIS CRITICAL CARE TIME INCLUDED OBTAINING A HISTORY; EXAMINING THE PATIENT; PULSE OXIMETRY; ORDERING AND REVIEW OF STUDIES; ARRANGING URGENT TREATMENT WITH DEVELOPMENT OF A MANAGEMENT PLAN; EVALUATION OF PATIENT'S RESPONSE TO TREATMENT; FREQUENT REASSESSMENT; AND, DISCUSSIONS WITH OTHER PROVIDERS. THIS CRITICAL CARE TIME WAS PERFORMED TO ASSESS AND MANAGE THE HIGH PROBABILITY OF IMMINENT, LIFE-THREATENING DETERIORATION THAT COULD RESULT IN MULTI-ORGAN FAILURE. IT WAS EXCLUSIVE OF SEPARATELY BILLABLE PROCEDURES AND TREATING OTHER PATIENTS AND TEACHING TIME. PLEASE SEE MDM SECTION AND THE REST OF THE NOTE FOR FURTHER INFORMATION ON PATIENT ASSESSMENT AND TREATMENT. DX & DISP Disposition: Inpatient Decision to Admit Time: 16:25 Departure Impression: Primary Impression: Sepsis Additional Impression: Pneumonia involving right lung Condition: Stable Referrals: LAURENCE BELLO MD (PCP) JOHNATHON WHITLEY MD Jul 09, 2024 16:15
--- NOTE | 2024-07-09 16:35 | HMCIMG ---
CHEST 1VW HISTORY: Cough COMPARISON: 06/13/2024 FINDINGS: A frontal projection of the chest was obtained. Mild bilateral pulmonary infiltrates are seen may be related to mild pulmonary vascular congestion with possible superimposed pneumonitis. The heart is normal in size. There is dextroscoliosis. Degenerative changes are seen. Aortic calcifications are seen. IMPRESSION: 1. Mild bilateral pulmonary infiltrates are seen may be related to mild pulmonary vascular congestion with possible superimposed pneumonitis.
[2024-07-09] MEDS ORDERED: acetaMINOPHEN 325 MG TAB PO PRN (17:00)
[2024-07-09] MEDS ORDERED: levoFLOXacin 500 MG/D5W 100 ML 100 ML IV SCH (17:00)
[2024-07-09] MEDS ORDERED: ondanSETRON 4MG INJ IVP PRN (17:00)
--- NOTE | 2024-07-09 17:14 | HP ---
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 Patient was evaluated in ED room three, patient is accompanied by no one, labor law professor translating for me as patient only speaks Nicaraguan. Patient stated that she started having fevers in the last24 hours associated with cough. Patient's voices hoarse. She has history of squamous cell carcinoma of the tongue. Patient was recently discharged on 06/19/2024 after being hospitalized for six days, she was admitted due to bilateral lower extremity edema patient was on Bumex2 mg b.i.d. today, she was evaluated in ED room three, she is a poor historian. Patient stated that she just barely been discharged not too long ago and now she is back to the hospital. A chest x-ray was done which showed mild bilateral pulmonary infiltrates seen maybe related to pulmonary vascular congestion with possible superimposed pneumonitis. Patient received Levaquin IV in the ED. further management has been recommended hence patient was admitted under the hospitalist team.] REVIEW OF SYSTEMS CONSTITUTIONAL: Denies fevers, chills, or night sweats. No unintentional weight loss reported. NEUROLOGICAL: Denies headache, amaurosis fugax, motor weakness, sensory defici t, vertigo/spinning sensation, gait abnormalities, or tremors. ENT: No hearing loss, otalgia, otorrhea, rhinitis, rhinorrhea, hoarseness, or sore throat. CARDIOVASCULAR: Denies any exertional angina, dyspnea on exertion, orthopnea, paroxysmal nocturnal dyspnea, palpitations, life-threatening arrhythmias, claudication. PULMONARY: Denies any shortness of breath, cough, phlegm/sputum, hemoptysis, pleuritic chest pain. SLEEP: Denies morning headaches, daytime somnolence or napping. Denies difficulty falling asleep, staying asleep, waking from sleep. Denies knowledge of snoring. GASTROINTESTINAL: Denies any type of dysphagia to either liquids or solids. Denies nausea, vomiting, pyrosis, early satiety, abdominal pain, diarrhea, constipation, or changes in stool consistency or caliber. Denies coffee-ground emesis, hematemesis, hematochezia, or melanotic stools. GENITOURINARY: Denies frequency, urgency, nocturia, hematuria or incontinence (Storage/Irritative symptoms.) Low urinary stream, straining to void, urinary intermittency or hesitancy, splitting of the voiding stream, terminal dribbling. ENDOCRINOLOGIC: Denies polyuria, polydipsia, polyphagia or heat/cold intolerances. HEMATOLOGIC: Denies thrombophilia/previous clots, or coagulopathy/bleeding disorders. ONCOLOGIC: Denies personal history of malignancy. DERMATOLOGIC: Denies rashes or pruritus. PSYCHIATRIC: Denies any suicidal or homicidal ideation. Denies hallucinations. PAST MEDICAL HISTORY: Paroxysmal atrial fibrillation, hypertension, CKD stage IIIB, gout, hypothyroidism, prior history of squamous cell carcinoma of the tongue status post chemotherapy and surgery, history of chronic anticoagulation with Eliquis [ ] PAST SURGICAL HISTORY: [History of lower back surgery, right hip arthroplasty, tongue surgery, right shoulder surgery, cholecystectomy ] PAST SOCIAL HISTORY: [Patient denies active smoking alcohol consumption, resides with son at home ] FAMILY HISTORY: [ Reports family history of heart disease ] Coded Allergies: ceftriaxone (Verified Allergy, Intermediate, 12/28/23) Rash PHYSICAL EXAM GENERAL APPEARANCE: The patient is awake, alert, and oriented, in no acute cardiopulmonary distress. NEUROLOGICAL: Cranial nerves II-XII grossly intact. Motor is 5/5 in bilateral upper and lower extremities proximal to distal. No sensory deficits. HEENT: Face is symmetric. Pupils are equal and reactive. Extraocular movements are intact. NECK: Supple. No JVD. No thyromegaly. No submental, submandibular, pre- /postauricular, occipital or supraclavicular lymphadenopathy. CHEST: Normal chest expansion. No Telemetry. LUNGS: Absence of any rales, rhonchi or any wheezing. CARDIOVASCULAR: Regular. S1 and S2 normal. No appreciable rubs, murmurs or gallops. ABDOMEN: Soft, nontender, and nondistended. There is no rebound, voluntary guarding, or rigidity. : Deferred. No Gifford. EXTREMITIES: Non-edematous and not cyanotic. No clubbing. Good capillary refill. SKIN: No skin breakdown. Vital Sign (Last 24 Hours) 07/09/24 16:00 Temp 99.3 Pulse 84 Resp 20 B/P (MAP) 155/74 Pulse Ox 95 O2 Delivery Room Air* O2 Flow Rate 0 FiO2 21 LABS: Laboratory: Test 07/09/24 15:12 07/09/24 14:20 Range/Units White Blood Count 4.4 L 4.8-10.8 K/uL Red Blood Count 3.56 L 4.00-5.50 MIL/uL Hemoglobin 11.0 L 12.0-16.0 g/dL Hematocrit 33.3 L 36-48 % Mean Corpuscular Volume 93.5 79-99 fL Mean Corpuscular Hemoglobin 30.9 27.0-33.0 pg Mean Corpuscular Hemoglobin Concent 33.0 32.0-36.0 g/dL Red Cell Distribution Width 14.6 11.0-15.5 % Platelet Count 155 130-400 K/uL Mean Platelet Volume 9.7 7.5-10.5 fL Immature Granulocyte % (Auto) 0.0 0-1 % Neutrophils (%) (Auto) 72.6 40.0-77.0 % Lymphocytes (%) (Auto) 14.3 L 21.0-51.0 % Monocytes (%) (Auto) 11.5 3.0-13.0 % Eosinophils (%) (Auto) 1.1 0.0-8.0 % Basophils (%) (Auto) 0.5 0.0-5.0 % Neutrophils # (Auto) 3.2 1.8-7.7 K/uL Lymphocytes # (Auto) 0.6 L 1.0-4.8 K/uL Monocytes # (Auto) 0.5 0.1-1.0 K/uL Eosinophils # (Auto) 0.05 0.00-0.70 K/uL Basophils # (Auto) 0.02 0.00-0.20 K/uL Absolute Immature Granulocyte (auto 0.00 0-1 K/uL Nucleated Red Blood Cells 0.0 0.0-0.19 % Sodium Level 136 136-145 mmol/L Potassium Level 3.9 3.5-5.1 mmol/L Chloride Level 97 L 101-111 mmol/L Carbon Dioxide Level 32 21-32 mmol/L Blood Urea Nitrogen 23 H 7-18 mg/dL Creatinine 1.8 H 0.5-1.0 mg/dL Glomerular Filtration Rate Calc 28 >90 mL/min Random Glucose 128 H 70-105 mg/dL Lactic Acid Level 2.0 0.8-2.5 mmol/L Total Calcium 9.0 8.5-10.1 mg/dL Total Creatine Kinase 100 # 21-232 U/L Troponin I High Sensitivity 8 4-50 ng/L Influenza Type A Antigen Negative For Type A NEGATIVE Influenza Type B Antigen Negative For Type B NEGATIVE SARS-CoV-2, RNA, NAAT NEGATIVE SARS CoV-2 NEGATIVE Current Medications Medications (Trade) Dose Ordered Sig/Meggan Route PRN Reason Start Time Stop Time Status Last Admin Dose Admin Acetaminophen (TYLenol 325MG TAB) 650 mg Q4H PRN PO TEMPERATURE GREATER THAN 101.5 07/09/24 17:00 08/08/24 16:59 UNV Acetaminophen (TYLenol 325MG TAB) 650 mg Q6H PRN PO MILD PAIN (1-3) 07/09/24 17:00 08/08/24 16:59 UNV Levofloxacin/ Dextrose 100 ml @ 100 mls/hr Q24H IV 07/09/24 17:00 07/19/24 16:59 UNV Levofloxacin/ Dextrose 100 ml @ 100 mls/hr Q24H STAT IV 07/09/24 14:25 07/09/24 15:24 DC 07/09/24 15:27 100 MLS/HR Ondansetron HCl (zoFRAN 4MG INJ) 4 mg Q6H PRN IVP NAUSEA/VOMITING 07/09/24 17:00 08/08/24 16:59 UNV DIAGNOSTICS / RADIOLOGY: [place] [address] [place] [address] IMAGING REPORT Signed PATIENT: RAFAELA HOWELL MR#: [id number] : 1940 SEX: F AGE: 84 LOCATION: [facility] ORDER 22 STATUS: REG REPORT#: [id number] SERVICE 142 REASON: COUGH ORDERING PHYSICIAN: JOHNATHON WHITLEY MD PROCEDURE: CXR1VW - CHEST 1VW CHEST 1VW HISTORY: Cough COMPARISON: 06/13/2024 FINDINGS: A frontal projection of the chest was obtained. Mild bilateral pulmonary infiltrates are seen may be related to mild pulmonary vascular congestion with possible superimposed pneumonitis. The heart is normal in size. There is dextroscoliosis. Degenerative changes are seen. Aortic calcifications are seen. IMPRESSION: 1. Mild bilateral pulmonary infiltrates are seen may be related to mild pulmonary vascular congestion with possible superimposed pneumonitis. DICTATED BY: MONTANA STORM MD DATE: 07/09/241631 ELECTRONICALLY SIGNED BY: MONTANA STORM MD DATE: 07/09/24 1635 ] ASSESSMENT: [Sepsis, POA- T: 101.5, HR 20, source: lungs (PNA), creat:1.8 Bilateral pulmonary infiltrates, maybe related to mild pulmonary vascular congestion, POA Acute on chronic kidney injury, POA Hyperglycemia, POA Chronic leukopenia, POA Chronic normocytic anemia, POA Underlying history of paroxysmal atrial fibrillation, POA History of chronic anticoagulation with Eliquis, POA Rule out diastolic heart failure exacerbation, POA History of venous insufficiency, POA Uncontrolled Hypertension, POA hyperlipidemia POA Hypothyroidism, POA Morbid Obesity, POA ] PLAN: [Admit to medical telemetry floor Patient will be started with IV diuretics with Bumex2 mg b.i.d. Continue with fluid restriction with 1.5 L, salt restriction We will request speech therapist to eval and treat due to hoarseness We will consult Nephrology Patient will be started with broad-spectrum IV antibiotics with Levaquin We will trend CBC and BMP daily We will request her home medications Add when necessary meds for nausea, vomiting, pain, constipation, insomnia. GI and DVT prophylaxis Patient is a full code Patient was seen and examined in ED 3, discussed plan with Dr. Medel, above plan was formulated] ADVANCED CARE PLANNING 1. Which of the following were discussed? Hospice Care - Yes / No Therapeutic options - Yes / No Advance Directives - Yes / No Other discussions - 2. Discussed with who? patient 3. Voluntary nature of this service was explained to the patient? Yes / No 4. Amount of time spent - _20 mins 5. Reviewed by Physician? (if this service was performed by NPP) Yes / No ATTESTATION BY PHYSICIAN I have seen and examined the patient. I reviewed the documentation, medical decision making, and treatment plan as noted by the mid-level provider above. I agree with the findings and plan of care. JESSICA MEDEL MD, [facility] Jul 09, 2024 17:14
[2024-07-09 17:16] LABS: APPEARANCE,URINE CLEAR (CLEAR); BILIRUBIN,URINE NEGATIVE (NEGATIVE); COLOR,URINE LIGHT-YELLOW (YELLOW); GLUCOSE, URINE (UA) NEGATIVE (NEGATIVE); KETONES,URINE NEGATIVE (NEGATIVE); LEUKOCYTE ESTERASE ,URINE 500 Leu/uL (NEGATIVE); NITRATE,URINE NEGATIVE (NEGATIVE); OCCULT BLOOD,URINE NEGATIVE (NEGATIVE); PH,URINE 7.5 (5.0-8.0); PROTEIN,URINE NEGATIVE (NEGATIVE); UROBILINOGEN,URINE 0.2 mg/dL (0.2-1.0)
[2024-07-09 17:17] LABS: ADD UA MICROSCOPIC YES
[2024-07-09 17:19] LABS: BACTERIA,URINE MOD /HPF (None Seen); MUCUS,URINE RARE LPF (None Seen); SQUAMOUS EPITHELIAL CELL,UR RARE /HPF (0-2); UNCLASSIFIED CRYSTAL 1 /HPF (None Seen); WBC CLUMP FEW /HPF (0-1); WBC,URINE 51-100 /HPF (0-1); YEAST,URINE BUDDING RARE /HPF (None Seen)
[2024-07-09 18:14] LABS: HEMOGLOBIN A1C 6.1 % (4.0-6.0)
[2024-07-09 20:00] VITALS: BP 157/73; PULSE 87; RESP 18; TEMP 98.7
[2024-07-10] VITALS (8 sets, daily range): BP systolic 100–159; BP diastolic 50–68; PULSE 87–102; RESP 17–19; TEMP 97.7–100.5; O2SAT 97–98
--- NOTE | 2024-07-10 01:25 | NUR ---
PT AWAKE, EPISODE OF AGITATION AND CONFUSION, REQUESTING SON AND TO BE TAKEN TO HOSPITAL. REORIENTED PT, MADE AWARE IN ER. CALL PLACED TO SON TO MAKE AWARE PT REQUESTING HIM TO BE HERE, STATES WILL TALK TO PT VIA PHONE.
--- NOTE | 2024-07-10 01:35 | NUR ---
PT MORE CALM AT THIS TIME.
--- NOTE | 2024-07-10 02:05 | NUR ---
PT WITH EYES CLOSED, NO SIGNS OF DISCOMFORT, NO RESPIRATORY DISTRESS.
--- NOTE | 2024-07-10 05:15 | NUR ---
SON HERE TO VISIT PT.
[2024-07-10] MEDS: acetaMINOPHEN 325 MG TAB PO PRN (05:16)
[2024-07-10 07:27] LABS: EOSINOPHILS # (AUTO) 0.03 K/uL (0.00-0.70); EOSINOPHILS % (AUTO) 0.8 % (0.0-8.0); HEMATOCRIT 31.9 % (36-48); IMMATURE GRANULOCYTE ABSOLUTE 0.02 K/uL (0-1); LYMPHOCYTES # (AUTO) 0.4 K/uL (1.0-4.8); LYMPHOCYTES % (AUTO) 10.5 % (21.0-51.0); MEAN CORPUSCULAR HEMOGLOBIN 30.4 pg (27.0-33.0); MEAN CORPUSCULAR HGB CONC 32.3 g/dL (32.0-36.0); MEAN CORPUSCULAR VOLUME 94.1 fL (79-99); MONOCYTES # (AUTO) 0.2 K/uL (0.1-1.0); MONOCYTES % (AUTO) 6.6 % (3.0-13.0); NEUTROPHILS # (AUTO) 2.9 K/uL (1.8-7.7); NEUTROPHILS % (AUTO) 81.5 % (40.0-77.0); PLATELET COUNT (AUTO) 146 K/uL (130-400); RED BLOOD CELL COUNT(AUTO) 3.39 MIL/uL (4.00-5.50); RED CELL DISTRIBUTION WIDTH 14.4 % (11.0-15.5); WHITE BLOOD COUNT (AUTO) 3.6 K/uL (4.8-10.8)
[2024-07-10 07:38] LABS: ALBUMIN 2.6 g/dL (3.5-5.0); CREATININE 1.7 mg/dL (0.5-1.0); POTASSIUM 3.4 mmol/L (3.5-5.1); TOTAL PROTEIN, SERUM 6.4 g/dL (6.0-8.3)
--- NOTE | 2024-07-10 13:08 | PN ---
[facility] PROGRESS NOTE Date of Service: Jul 10, 2024 Time of Service: 13:04 SUBJECTIVE: [ 84-year-old female admitted due to sepsis secondary to pneumonia. Patient continues to have hoarseness on her voice. We will request nursing for home meds to be updated. Patient had fever at 100.6 F at midnight. WBC 3.6. No other complaints reported overnight. Patient also noted with positive urinalysis with 500 a leuko esterase. REVIEW OF SYSTEMS CONSTITUTIONAL: Denies fevers, chills, or night sweats. No unintentional weight loss reported. NEUROLOGICAL: Denies headache, amaurosis fugax, motor weakness, sensory deficit, vertigo/spinning sensation, gait abnormalities, or tremors. ENT: No hearing loss, otalgia, otorrhea, rhinitis, rhinorrhea, hoarseness, or sore throat. CARDIOVASCULAR: Denies any exertional angina, dyspnea on exertion, orthopnea, paroxysmal nocturnal dyspnea, palpitations, life-threatening arrhythmias, claudication. PULMONARY: Denies any shortness of breath, cough, phlegm/sputum, hemoptysis, pleuritic chest pain. SLEEP: Denies morning headaches, daytime somnolence or napping. Denies difficulty falling asleep, staying asleep, waking from sleep. Denies knowledge of snoring. GASTROINTESTINAL: Denies any type of dysphagia to either liquids or solids. Denies nausea, vomiting, pyrosis, early satiety, abdominal pain, diarrhea, constipation, or changes in stool consistency or caliber. Denies coffee-ground emesis, hematemesis, hematochezia, or melanotic stools. GENITOURINARY: Denies frequency, urgency, nocturia, hematuria or incontinence (Storage/Irritative symptoms.) Low urinary stream, straining to void, urinary intermittency or hesitancy, splitting of the voiding stream, terminal dribbling. ENDOCRINOLOGIC: Denies polyuria, polydipsia, polyphagia or heat/cold intolerances. HEMATOLOGIC: Denies thrombophilia/previous clots, or coagulopathy/bleeding disorders. ONCOLOGIC: Denies personal history of malignancy. DERMATOLOGIC: Denies rashes or pruritus. PSYCHIATRIC: Denies any suicidal or homicidal ideation. Denies hallucinations. PHYSICAL EXAM GENERAL APPEARANCE: The patient is awake, alert, and oriented, in no acute cardiopulmonary distress. NEUROLOGICAL: Cranial nerves II-XII grossly intact. Motor is 5/5 in bilateral upper and lower extremities proximal to distal. No sensory deficits. HEENT: Face is symmetric. Pupils are equal and reactive. Extraocular movements are intact. NECK: Supple. No JVD. No thyromegaly. No submental, submandibular, pre- /postauricular, occipital or supraclavicular lymphadenopathy. CHEST: Normal chest expansion. No Telemetry. LUNGS: Absence of any rales, rhonchi or any wheezing. CARDIOVASCULAR: Regular. S1 and S2 normal. No appreciable rubs, murmurs or gallops. ABDOMEN: Soft, nontender, and nondistended. There is no rebound, voluntary guarding, or rigidity. : Deferred. No Gifford. EXTREMITIES: Non-edematous and not cyanotic. No clubbing. Good capillary refill. SKIN: No skin breakdown. Vital Signs (last 8hr) Date Time Temp Pulse Resp B/P (MAP) Pulse Ox O2 Delivery O2 Flow Rate FiO2 07/10/24 10:55 99.5 70 20 118/55 98 Room Air* 0 21 07/10/24 09:21 98.8 78 20 103/54 98 Room Air* 0 21 07/10/24 07:52 98.8 78 20 108/55 98 Room Air* 0 21 LABS: Laboratory: Test 07/10/24 07:07 07/09/24 16:41 07/09/24 16:00 07/09/24 15:12 Range/Units White Blood Count 3.6 L 4.8-10.8 K/uL Red Blood Count 3.39 L 4.00-5.50 MIL/uL Hemoglobin 10.3 L 12.0-16.0 g/dL Hematocrit 31.9 L 36-48 % Mean Corpuscular Volume 94.1 79-99 fL Mean Corpuscular Hemoglobin 30.4 27.0-33.0 pg Mean Corpuscular Hemoglobin Concent 32.3 32.0-36.0 g/dL Red Cell Distribution Width 14.4 11.0-15.5 % Platelet Count 146 130-400 K/uL Mean Platelet Volume 9.9 7.5-10.5 fL Immature Granulocyte % (Auto) 0.6 0-1 % Neutrophils (%) (Auto) 81.5 H 40.0-77.0 % Lymphocytes (%) (Auto) 10.5 L 21.0-51.0 % Monocytes (%) (Auto) 6.6 3.0-13.0 % Eosinophils (%) (Auto) 0.8 0.0-8.0 % Basophils (%) (Auto) 0.0 0.0-5.0 % Neutrophils # (Auto) 2.9 1.8-7.7 K/uL Lymphocytes # (Auto) 0.4 L 1.0-4.8 K/uL Monocytes # (Auto) 0.2 0.1-1.0 K/uL Eosinophils # (Auto) 0.03 0.00-0.70 K/uL Basophils # (Auto) 0.00 0.00-0.20 K/uL Absolute Immature Granulocyte (auto 0.02 0-1 K/uL Nucleated Red Blood Cells 0.0 0.0-0.19 % Sodium Level 137 136-145 mmol/L Potassium Level 3.4 L 3.5-5.1 mmol/L Chloride Level 100 L 101-111 mmol/L Carbon Dioxide Level 28 21-32 mmol/L Blood Urea Nitrogen 18 7-18 mg/dL Creatinine 1.7 H 0.5-1.0 mg/dL Glomerular Filtration Rate Calc 30 >90 mL/min Random Glucose 113 H 70-105 mg/dL Total Calcium 8.3 L 8.5-10.1 mg/dL Total Bilirubin 1.0 0.2-1.0 mg/dL Aspartate Amino Transf (AST/SGOT) 17 10-37 U/L Alanine Aminotransferase (ALT/SGPT) 7 L 12-78 U/L Alkaline Phosphatase 97 50-136 U/L Total Protein 6.4 6.0-8.3 g/dL Albumin 2.6 L 3.5-5.0 g/dL Hemoglobin A1c 6.1 H 4.0-6.0 % Estimated Average Glucose (eAG) 128 H 70-126 mg/dL Urine Color LIGHT-YELLOW YELLOW Urine Appearance CLEAR CLEAR Urine pH 7.5 5.0-8.0 Urine Specific [place] 1.009 1.001-1.031 Urine Protein NEGATIVE NEGATIVE mg/dL Urine Glucose (UA) NEGATIVE NEGATIVE mg/dL Urine Ketones NEGATIVE NEGATIVE mg/dL Urine Occult Blood NEGATIVE NEGATIVE Urine Nitrate NEGATIVE NEGATIVE Urine Bilirubin NEGATIVE NEGATIVE mg/dL Urine Urobilinogen 0.2 0.2-1.0 mg/dL Urine Leukocyte Esterase 500 H NEGATIVE Diaz/uL Urine RBC 2-5 H 0-1 /HPF Urine WBC 51-100 H 0-1 /HPF Urine WBC Clumps (Auto) FEW 0-1 /HPF Urine Squamous Epithelial Cells RARE 0-2 /HPF Urine Other Crystals (Auto) 1 None Seen /HPF Urine Bacteria MOD None Seen /HPF Urine Hyaline Casts 2-5 H 0-1 /LPF /LPF Urine Yeast RARE None Seen /HPF Lactic Acid Level 2.0 0.8-2.5 mmol/L Total Creatine Kinase 100 # 21-232 U/L Troponin I High Sensitivity 8 4-50 ng/L Test 07/09/24 14:20 Range/Units Influenza Type A Antigen Negative For Type A NEGATIVE Influenza Type B Antigen Negative For Type B NEGATIVE SARS-CoV-2, RNA, NAAT NEGATIVE SARS CoV-2 NEGATIVE Current Medications Medications (Trade) Dose Ordered Sig/Meggan Route PRN Reason Start Time Stop Time Status Last Admin Dose Admin Acetaminophen (TYLenol 325MG TAB) 650 mg Q4H PRN PO TEMPERATURE GREATER THAN 101.5 07/09/24 17:00 08/08/24 16:59 Acetaminophen (TYLenol 325MG TAB) 650 mg Q6H PRN PO MILD PAIN (1-3) 07/09/24 17:00 08/08/24 16:59 07/10/24 05:16 650 MG Levofloxacin/ Dextrose 50 ml @ 50 mls/hr Q48H IVPB 07/11/24 15:00 07/21/24 14:59 Levofloxacin/ Dextrose 100 ml @ 100 mls/hr Q24H IV 07/09/24 17:00 07/09/24 16:54 DC Levofloxacin/ Dextrose 100 ml @ 100 mls/hr Q24H STAT IV 07/09/24 14:25 07/09/24 15:24 DC 07/09/24 15:27 100 MLS/HR Ondansetron HCl (zoFRAN 4MG INJ) 4 mg Q6H PRN IVP NAUSEA/VOMITING 07/09/24 17:00 08/08/24 16:59 DIAGNOSTICS / RADIOLOGY: [ ] ASSESSMENT: [Sepsis, POA- T: 101.5, HR 20, source: lungs (PNA), creat:1.8 Urinary tract infection, POA Bilateral pulmonary infiltrates, maybe related to mild pulmonary vascular congestion, POA Acute on chronic kidney injury, POA Hyperglycemia, POA Chronic leukopenia, POA Chronic normocytic anemia, POA Underlying history of paroxysmal atrial fibrillation, POA History of chronic anticoagulation with Eliquis, POA Rule out diastolic heart failure exacerbation, POA History of venous insufficiency, POA Uncontrolled Hypertension, POA hyperlipidemia POA Hypothyroidism, POA Morbid Obesity, POA ] PLAN: [Admit to medical telemetry floor Patient will be started with IV diuretics with Bumex2 mg b.i.d. Continue with fluid restriction with 1.5 L, salt restriction We will request speech therapist to eval and treat due to hoarseness We will consult Nephrology C/w broad-spectrum IV antibiotics with Levaquin We will follow up with urine culture during our down antibiotics We will trend CBC and BMP daily We will request her home medications Add when necessary meds for nausea, vomiting, pain, constipation, insomnia. GI and DVT prophylaxis Patient is a full code Patient was seen and examined in ED 3, discussed plan with Dr. Bhakta, above plan was formulated] ATTESTATION BY PHYSICIAN I have seen and examined the patient. I reviewed the documentation, medical decision making, and treatment plan as noted by the mid-level provider above. I agree with the findings and plan of care. JESSICA BHAKTA MD, [facility] Jul 10, 2024 13:07
--- NOTE | 2024-07-10 13:22 | NUR ---
Left message for son Shad Cota [phone]. Pt does not have hearing aids and told me to call son or information. Waiting for call back
[2024-07-10] MEDS: levoFLOXacin 250 MG/D5W 50ML 50 ML IVPB SCH (17:48)
--- NOTE | 2024-07-10 18:33 | NUR ---
SPEECH NOTE: Pt admitted with right lung infiltrates on this admission. Orders to evaluate patient's swallowing received due to possible aspiration pneumonia. As per previous admission, patient completed MBSS on 12/29/2023 with recommendations for NPO, longterm alternate means of nutrition/hydration. Pt however refused recommendations despite education on risks and consequences of aspiration. Pt continued with oral intake prior to being discharged. Pt likely aspirating due to Hx of dysphagia however unknown if patient would like to proceed with evaluation and recommendations. Recommend MBSS if patient would like to be re-evaluated. All questions answered. Addendum: 07/10/[address] TITI CRAWFORD Amended: Links added.
--- NOTE | 2024-07-10 19:00 | NUR ---
MEETING WITH SON spoke to son (Shad) about pt being admitted with pneumonia and recent MBSS on last admit in December and he is aware that his mother failed her MBSS and is need of a PEG tube but states that him, his mother (pt) as well as Dr. Hubbard from [facility], and Dr. Parada have all agreed that a PEG tube would not be beneficial to the pt due to her age and high risk for complications during the procedure. I explained to him that since she failed her MBSS and they continue to feed her at home, that this may be what is causing her pneumonia, he agrees and states "I am not going to starve my mother and you can bring me the refusal form I signed last time about me refusing to comply with NPO status." I explained to him that there was much to discuss with physicians and that I would contact him tomorrow with further information. He also states, "you are not going to stop me from feeding her, If I see that she is hungry I will feed her, you can call security or do whatever you need to do, I am her son and I know what is best." He states that he is aware that his mother is admitted with right lung infiltrates and states that he feels that it is pointless to evaluate patient's swallowing due to possible aspiration pneumonia since she already failed the exam back in December. Spoke to ST about previous recommendations and that despite education on risks and consequences of aspiration the patient and family continue to refuse the PEG, yet they continue to bring the patient in to ER to have her evaluated for cough and pneumonia. Will follow up, report given to night custodian.
--- NOTE | 2024-07-10 22:30 | NUR ---
ASPIRATION: PT ASKING FOR WATER. PT MADE AWARE OF PREVIOUS MBSS THAT SHE FAILED. PT WAS ADVISED ON HIGH POSSIBILITY OF ASPIRATION WITHOUT ADDING THICKENER TO WATER, PT UNDERSTANDS AND WANTS WATER REGARDLESS. PT SAT UP IN HIGH CHAND'S POSITION AND SMALL AMOUNT OF WATER GIVEN WITHOUT STRAW. PT STARTED COUGHING IMMEDIATELY AFTER WATER GIVEN.
[2024-07-10] MEDS: FLU VACC TS2024-25(6MOS UP)/PF 45 MCG/0.5 ML ML IM ONE (23:21)
[2024-07-11] VITALS (8 sets, daily range): BP systolic 112–122; BP diastolic 49–56; PULSE 72–91; RESP 19–20; TEMP 97.8–98.9; O2SAT 94–95
[2024-07-11 05:16] LABS: HEMATOCRIT 30.9 % (36-48); MEAN CORPUSCULAR HEMOGLOBIN 30.6 pg (27.0-33.0); MEAN CORPUSCULAR HGB CONC 33.3 g/dL (32.0-36.0); MEAN CORPUSCULAR VOLUME 91.7 fL (79-99); RED BLOOD CELL COUNT(AUTO) 3.37 MIL/uL (4.00-5.50); RED CELL DISTRIBUTION WIDTH 14.4 % (11.0-15.5); WHITE BLOOD COUNT (AUTO) 3.5 K/uL (4.8-10.8)
[2024-07-11 05:26] LABS: CREATININE 1.6 mg/dL (0.5-1.0); POTASSIUM 3.6 mmol/L (3.5-5.1)
--- NOTE | 2024-07-11 10:24 | PN ---
[facility] PROGRESS NOTE Date of Service: Jul 11, 2024 Time of Service: 10:22 SUBJECTIVE: [ 84-year-old female admitted due to sepsis secondary to pneumonia. Patient continues to have hoarseness on her voice. Patient continues to be weak, we will request physical therapy to eval and treat. Urine culture came back positive for Klebsiella pneumoniae we will continue with Levaquin. Due to continuous weakness and antibiotics via IV, we will recommend sniff placement. Overnight patient is afebrile, WBC continue to downtrend. REVIEW OF SYSTEMS CONSTITUTIONAL: Denies fevers, chills, or night sweats. No unintentional weight loss reported. NEUROLOGICAL: Denies headache, amaurosis fugax, motor weakness, sensory deficit, vertigo/spinning sensation, gait abnormalities, or tremors. ENT: No hearing loss, otalgia, otorrhea, rhinitis, rhinorrhea, hoarseness, or sore throat. CARDIOVASCULAR: Denies any exertional angina, dyspnea on exertion, orthopnea, paroxysmal nocturnal dyspnea, palpitations, life-threatening arrhythmias, claudication. PULMONARY: Denies any shortness of breath, cough, phlegm/sputum, hemoptysis, pleuritic chest pain. SLEEP: Denies morning headaches, daytime somnolence or napping. Denies difficulty falling asleep, staying asleep, waking from sleep. Denies knowledge of snoring. GASTROINTESTINAL: Denies any type of dysphagia to either liquids or solids. Denies nausea, vomiting, pyrosis, early satiety, abdominal pain, diarrhea, constipation, or changes in stool consistency or caliber. Denies coffee-ground emesis, hematemesis, hematochezia, or melanotic stools. GENITOURINARY: Denies frequency, urgency, nocturia, hematuria or incontinence (Storage/Irritative symptoms.) Low urinary stream, straining to void, urinary intermittency or hesitancy, splitting of the voiding stream, terminal dribbling. ENDOCRINOLOGIC: Denies polyuria, polydipsia, polyphagia or heat/cold intolerances. HEMATOLOGIC: Denies thrombophilia/previous clots, or coagulopathy/bleeding disorders. ONCOLOGIC: Denies personal history of malignancy. DERMATOLOGIC: Denies rashes or pruritus. PSYCHIATRIC: Denies any suicidal or homicidal ideation. Denies hallucinations. PHYSICAL EXAM GENERAL APPEARANCE: The patient is awake, alert, and oriented, in no acute cardiopulmonary distress. NEUROLOGICAL: Cranial nerves II-XII grossly intact. Motor is 5/5 in bilateral upper and lower extremities proximal to distal. No sensory deficits. HEENT: Face is symmetric. Pupils are equal and reactive. Extraocular movements are intact. NECK: Supple. No JVD. No thyromegaly. No submental, submandibular, pre- /postauricular, occipital or supraclavicular lymphadenopathy. CHEST: Normal chest expansion. No Telemetry. LUNGS: Absence of any rales, rhonchi or any wheezing. CARDIOVASCULAR: Regular. S1 and S2 normal. No appreciable rubs, murmurs or gallops. ABDOMEN: Soft, nontender, and nondistended. There is no rebound, voluntary guarding, or rigidity. : Deferred. No Gifford. EXTREMITIES: Non-edematous and not cyanotic. No clubbing. Good capillary refill. SKIN: No skin breakdown. Vital Signs (last 8hr) Date Time Temp Pulse Resp B/P (MAP) Pulse Ox O2 Delivery O2 Flow Rate FiO2 07/11/24 07:36 98.1 90 20 114/56 93 Room Air 21 07/11/24 04:00 99.0 91 19 114/49 94 Room Air 21 LABS: Laboratory: Test 07/11/24 04:40 07/10/24 07:07 07/09/24 16:41 07/09/24 16:00 Range/Units White Blood Count 3.5 L 4.8-10.8 K/uL Red Blood Count 3.37 L 4.00-5.50 MIL/uL Hemoglobin 10.3 L 12.0-16.0 g/dL Hematocrit 30.9 L 36-48 % Mean Corpuscular Volume 91.7 79-99 fL Mean Corpuscular Hemoglobin 30.6 27.0-33.0 pg Mean Corpuscular Hemoglobin Concent 33.3 32.0-36.0 g/dL Red Cell Distribution Width 14.4 11.0-15.5 % Platelet Count 156 130-400 K/uL Mean Platelet Volume 9.8 7.5-10.5 fL Nucleated Red Blood Cells 0.0 0.0-0.19 % Sodium Level 134 L 136-145 mmol/L Potassium Level 3.6 3.5-5.1 mmol/L Chloride Level 98 L 101-111 mmol/L Carbon Dioxide Level 27 21-32 mmol/L Blood Urea Nitrogen 22 H 7-18 mg/dL Creatinine 1.6 H 0.5-1.0 mg/dL Glomerular Filtration Rate Calc 32 >90 mL/min Random Glucose 98 70-105 mg/dL Total Calcium 8.8 8.5-10.1 mg/dL Immature Granulocyte % (Auto) 0.6 0-1 % Neutrophils (%) (Auto) 81.5 H 40.0-77.0 % Lymphocytes (%) (Auto) 10.5 L 21.0-51.0 % Monocytes (%) (Auto) 6.6 3.0-13.0 % Eosinophils (%) (Auto) 0.8 0.0-8.0 % Basophils (%) (Auto) 0.0 0.0-5.0 % Neutrophils # (Auto) 2.9 1.8-7.7 K/uL Lymphocytes # (Auto) 0.4 L 1.0-4.8 K/uL Monocytes # (Auto) 0.2 0.1-1.0 K/uL Eosinophils # (Auto) 0.03 0.00-0.70 K/uL Basophils # (Auto) 0.00 0.00-0.20 K/uL Absolute Immature Granulocyte (auto 0.02 0-1 K/uL Total Bilirubin 1.0 0.2-1.0 mg/dL Aspartate Amino Transf (AST/SGOT) 17 10-37 U/L Alanine Aminotransferase (ALT/SGPT) 7 L 12-78 U/L Alkaline Phosphatase 97 50-136 U/L Total Protein 6.4 6.0-8.3 g/dL Albumin 2.6 L 3.5-5.0 g/dL Hemoglobin A1c 6.1 H 4.0-6.0 % Estimated Average Glucose (eAG) 128 H 70-126 mg/dL Urine Color LIGHT-YELLOW YELLOW Urine Appearance CLEAR CLEAR Urine pH 7.5 5.0-8.0 Urine Specific [place] 1.009 1.001-1.031 Urine Protein NEGATIVE NEGATIVE mg/dL Urine Glucose (UA) NEGATIVE NEGATIVE mg/dL Urine Ketones NEGATIVE NEGATIVE mg/dL Urine Occult Blood NEGATIVE NEGATIVE Urine Nitrate NEGATIVE NEGATIVE Urine Bilirubin NEGATIVE NEGATIVE mg/dL Urine Urobilinogen 0.2 0.2-1.0 mg/dL Urine Leukocyte Esterase 500 H NEGATIVE Diaz/uL Urine RBC 2-5 H 0-1 /HPF Urine WBC 51-100 H 0-1 /HPF Urine WBC Clumps (Auto) FEW 0-1 /HPF Urine Squamous Epithelial Cells RARE 0-2 /HPF Urine Other Crystals (Auto) 1 None Seen /HPF Urine Bacteria MOD None Seen /HPF Urine Hyaline Casts 2-5 H 0-1 /LPF /LPF Urine Yeast RARE None Seen /HPF Test 07/09/24 15:12 07/09/24 14:20 Range/Units Lactic Acid Level 2.0 0.8-2.5 mmol/L Total Creatine Kinase 100 # 21-232 U/L Troponin I High Sensitivity 8 4-50 ng/L Influenza Type A Antigen Negative For Type A NEGATIVE Influenza Type B Antigen Negative For Type B NEGATIVE SARS-CoV-2, RNA, NAAT NEGATIVE SARS CoV-2 NEGATIVE Current Medications Medications (Trade) Dose Ordered Sig/Meggan Route PRN Reason Start Time Stop Time Status Last Admin Dose Admin Acetaminophen (TYLenol 325MG TAB) 650 mg Q4H PRN PO TEMPERATURE GREATER THAN 101.5 07/09/24 17:00 08/08/24 16:59 Acetaminophen (TYLenol 325MG TAB) 650 mg Q6H PRN PO MILD PAIN (1-3) 07/09/24 17:00 08/08/24 16:59 07/10/24 05:16 650 MG Bumetanide (Bumex 1mg Tab) 2 mg BID PO 07/11/24 21:00 08/10/24 20:59 Famotidine (Pepcid 20mg Tab) 20 mg DAILY PO 07/12/24 09:00 08/11/24 08:59 Heparin Sodium (Porcine) (HEParin 5,000 UNIT VIAL) 5,000 unit Q12H SQ 07/11/24 10:30 08/10/24 10:29 Home Med (Home Medication) Cholecalciferol (Vitamin D3) QWEEK PO 07/18/24 09:00 08/17/24 08:59 Levofloxacin/ Dextrose 50 ml @ 50 mls/hr Q48H IVPB 07/11/24 15:00 07/21/24 14:59 Levofloxacin/ Dextrose 100 ml @ 100 mls/hr Q24H IV 07/09/24 17:00 07/09/24 16:54 DC Levofloxacin/ Dextrose 100 ml @ 100 mls/hr Q24H STAT IV 07/09/24 14:25 07/09/24 15:24 DC 07/09/24 15:27 100 MLS/HR Metoprolol Tartrate (loprESSOR) 12.5 mg BID PO 07/11/24 21:00 08/10/24 20:59 Miscellaneous Medication (Pramipexole Di-HCl (Pramipexole Dihydrochloride)) 0.125 mg HS PO 07/11/24 21:00 08/10/24 20:59 UNV Neomycin/ Polymyxin/ Bacitracin (Triple Antibiotic Ointment) BID TP 07/11/24 21:00 08/10/24 20:59 Ondansetron HCl (zoFRAN 4MG INJ) 4 mg Q6H PRN IVP NAUSEA/VOMITING 07/09/24 17:00 08/08/24 16:59 DIAGNOSTICS / RADIOLOGY: [ ] ASSESSMENT: [Sepsis, POA- T: 101.5, HR 20, source: lungs (PNA), creat:1.8 Urinary tract infection, POA Bilateral pulmonary infiltrates, maybe related to mild pulmonary vascular congestion, POA Acute on chronic kidney injury, POA Hyperglycemia, POA Chronic leukopenia, POA Chronic normocytic anemia, POA Underlying history of paroxysmal atrial fibrillation, POA History of chronic anticoagulation with Eliquis, POA Rule out diastolic heart failure exacerbation, POA History of venous insufficiency, POA Uncontrolled Hypertension, POA hyperlipidemia POA Hypothyroidism, POA Morbid Obesity, POA ] PLAN: [Admit to medical telemetry floor Continue with diuretics with Bumex2 mg b.i.d. Continue with fluid restriction with 1.5 L, salt restriction We will follow up with speech therapy recommendations Appreciate nephrology eval C/w broad-spectrum IV antibiotics with Levaquin Urine culture came back positive with Klebsiella pneumoniae We will trend CBC and BMP daily We will request her home medications Add when necessary meds for nausea, vomiting, pain, constipation, insomnia. GI and DVT prophylaxis Patient is a full code Case management with snf placement Patient was seen and examined in ED 3, discussed plan with Dr. Bhakta, above plan was formulated] ATTESTATION BY PHYSICIAN I have seen and examined the patient. I reviewed the documentation, medical decision making, and treatment plan as noted by the mid-level provider above. I agree with the findings and plan of care. JESSICA BHAKTA MD, [facility] Jul 11, 2024 10:24
[2024-07-11] MEDS ORDERED: PoTASSium chloRIDE 20MEQ ER 20 MEQ ERTAB PO ONE (10:30)
--- NOTE | 2024-07-11 11:24 | EKG ---
[facility] Test Date: 2024-07-11 Test Time: 11:22:06 Pat Name: RAFAELA HOWELL Department: [facility] Room: 425 1 Gender: F Rheumatology Nurse: EMIL : 1940 Requested By: LAVONNE BRADFORD Order Number: [id number] Reading MD: Gabriella Meek Measurements Intervals [place] Rate: 87 P: 74 [place]: 168 QRS: -59 QRSD: 90 T: 25 QT: 366 QTc: 440 Interpretive Statements Normal sinus rhythm Left anterior fascicular block Compared to ECG 07/09/2024 14:24:30 No significant changes Electronically Signed On 07-11-2024 17:35:22 [employer] by Gabriella Meek Please click the below link to view image of tracing.
--- NOTE | 2024-07-11 11:48 | NUR ---
LIZANDRO NINO NOTIFIED OF PENDING CONSULT. PA SAW PT. ORDERED SPUTUM CX AND BEDSIDE SWALLOW STUDY.
[2024-07-11] MEDS: HEParin 5,000 UNIT VIAL SQ SCH (12:07)
[2024-07-11] MEDS: PoTASSium chloRIDE 20MEQ/100ML 100 ML IV ONE ×2 (12:07→17:44)
--- NOTE | 2024-07-11 16:34 | NUR ---
CM NOTE: [facility] PENDING APPROVAL CM DC COAL WEIGHER OBTAINED PT SIGNED CONSENT STEFFI FOR [facility] CM DC COAL WEIGHER SENT ORDER, CLINICALS, PT, PASRR TO [facility] VIA SECURE FAX AND EMAIL, CONFIRMATION RECEIVED. CM SPOKE TO HAZEL [facility], CONFIRMED RECEIVED PACKET, WILL COME EVALUATE PT, AWARE PT WILL NEED FACILITY VAN FOR TRANSFER ONCE PT READY TO DC. PT PENDING APPROVAL AND ACCEPTANCE. PRIMARY TRUNG CUBA MADE AWARE. CM TO CONTINUE TO FOLLOW UP. Addendum: 07/11/24 at 1700 by ERIN HAAS LVN Amended: Links added.
[2024-07-11] MEDS: BUMETANIDE 1 MG TAB PO SCH (20:26)
[2024-07-11] MEDS: metoPROLOL tartRATE 25 MG TAB PO SCH (20:26)
[2024-07-11] MEDS: PRAMIpexole DI-HCL 0.25 MG TABLET PO SCH (20:26)
[2024-07-11] MEDS: NEOMY SULF/BACITRAC ZN/POLY OINT 30GM TUBE TP SCH (20:37)
[2024-07-11] MEDS: IpraTROPium 0.5 MG/2.5 ML INH IH ONE (22:54)
[2024-07-11] MEDS: SODIUM CHLORIDE 3% FOR INHALATION 4 ML/AMP VIAL.NEB IH ONE (23:41)
[2024-07-11] MEDS: IpraTROPium 0.5 MG/2.5 ML INH IH SCH (23:41)
[2024-07-12] VITALS (11 sets, daily range): BP systolic 93–118; BP diastolic 42–55; PULSE 72–89; RESP 16–20; TEMP 97.7–98.5; O2SAT 94–97
[2024-07-12 05:39] LABS: HEMATOCRIT 31.5 % (36-48); MEAN CORPUSCULAR HEMOGLOBIN 30.6 pg (27.0-33.0); MEAN CORPUSCULAR HGB CONC 32.7 g/dL (32.0-36.0); MEAN CORPUSCULAR VOLUME 93.5 fL (79-99); RED BLOOD CELL COUNT(AUTO) 3.37 MIL/uL (4.00-5.50); RED CELL DISTRIBUTION WIDTH 14.4 % (11.0-15.5); WHITE BLOOD COUNT (AUTO) 3.2 K/uL (4.8-10.8)
[2024-07-12 05:42] LABS: CREATININE 1.5 mg/dL (0.5-1.0); POTASSIUM 3.8 mmol/L (3.5-5.1)
[2024-07-12] MEDS: PoTASSium chloRIDE 20MEQ/100ML 100 ML IV PRN (05:58)
[2024-07-12] MEDS: LIDOCAINE 4% ADH..PATCH TP ONE (09:04)
--- NOTE | 2024-07-12 09:53 | PN ---
[facility] PROGRESS NOTE Date of Service: Jul 12, 2024 Time of Service: 09:52 SUBJECTIVE: [ 84-year-old female admitted due to sepsis secondary to pneumonia. Patient continues to have hoarseness on her voice. Patient continues to be weak, we will request physical therapy to eval and treat. Urine culture came back positive for E coli. we will continue with Levaquin. Due to continuous weakness and antibiotics via IV, we will recommend SNF placement. Patient was evaluated today in the room, she was crying, complaining of pain to the right shoulder. Plan is for her to eventually discharged to a [place] [facility] facility, but we are still pending speech therapy eval, family is still undecided whether patient will agreed to PEG tube placement. REVIEW OF SYSTEMS CONSTITUTIONAL: Denies fevers, chills, or night sweats. No unintentional weight loss reported. NEUROLOGICAL: Denies headache, amaurosis fugax, motor weakness, sensory deficit, vertigo/spinning sensation, gait abnormalities, or tremors. ENT: No hearing loss, otalgia, otorrhea, rhinitis, rhinorrhea, hoarseness, or sore throat. CARDIOVASCULAR: Denies any exertional angina, dyspnea on exertion, orthopnea, paroxysmal nocturnal dyspnea, palpitations, life-threatening arrhythmias, claudication. PULMONARY: Denies any shortness of breath, cough, phlegm/sputum, hemoptysis, pleuritic chest pain. SLEEP: Denies morning headaches, daytime somnolence or napping. Denies difficulty falling asleep, staying asleep, waking from sleep. Denies knowledge of snoring. GASTROINTESTINAL: Denies any type of dysphagia to either liquids or solids. Denies nausea, vomiting, pyrosis, early satiety, abdominal pain, diarrhea, constipation, or changes in stool consistency or caliber. Denies coffee-ground emesis, hematemesis, hematochezia, or melanotic stools. GENITOURINARY: Denies frequency, urgency, nocturia, hematuria or incontinence (Storage/Irritative symptoms.) Low urinary stream, straining to void, urinary intermittency or hesitancy, splitting of the voiding stream, terminal dribbling. ENDOCRINOLOGIC: Denies polyuria, polydipsia, polyphagia or heat/cold intolerances. HEMATOLOGIC: Denies thrombophilia/previous clots, or coagulopathy/bleeding disorders. ONCOLOGIC: Denies personal history of malignancy. DERMATOLOGIC: Denies rashes or pruritus. PSYCHIATRIC: Denies any suicidal or homicidal ideation. Denies hallucinations. PHYSICAL EXAM GENERAL APPEARANCE: The patient is awake, alert, and oriented, in no acute cardiopulmonary distress. NEUROLOGICAL: Cranial nerves II-XII grossly intact. Motor is 5/5 in bilateral upper and lower extremities proximal to distal. No sensory deficits. HEENT: Face is symmetric. Pupils are equal and reactive. Extraocular movements are intact. NECK: Supple. No JVD. No thyromegaly. No submental, submandibular, pre- /postauricular, occipital or supraclavicular lymphadenopathy. CHEST: Normal chest expansion. No Telemetry. LUNGS: Absence of any rales, rhonchi or any wheezing. CARDIOVASCULAR: Regular. S1 and S2 normal. No appreciable rubs, murmurs or gallops. ABDOMEN: Soft, nontender, and nondistended. There is no rebound, voluntary guarding, or rigidity. : Deferred. No Gifford. EXTREMITIES: Non-edematous and not cyanotic. No clubbing. Good capillary refill. SKIN: No skin breakdown. Vital Signs (last 8hr) Date Time Temp Pulse Resp B/P (MAP) Pulse Ox O2 Delivery O2 Flow Rate FiO2 07/12/24 08:00 98.2 75 16 102/46 94 Room Air 07/12/24 06:34 72 18 N/A Room Air 07/12/24 06:33 72 18 07/12/24 04:00 97.7 73 20 109/54 96 Room Air LABS: Laboratory: Test 07/12/24 05:27 07/11/24 11:36 Range/Units White Blood Count 3.2 L 4.8-10.8 K/uL Red Blood Count 3.37 L 4.00-5.50 MIL/uL Hemoglobin 10.3 L 12.0-16.0 g/dL Hematocrit 31.5 L 36-48 % Mean Corpuscular Volume 93.5 79-99 fL Mean Corpuscular Hemoglobin 30.6 27.0-33.0 pg Mean Corpuscular Hemoglobin Concent 32.7 32.0-36.0 g/dL Red Cell Distribution Width 14.4 11.0-15.5 % Platelet Count 159 130-400 K/uL Mean Platelet Volume 9.9 7.5-10.5 fL Nucleated Red Blood Cells 0.0 0.0-0.19 % Sodium Level 140 136-145 mmol/L Potassium Level 3.8 3.5-5.1 mmol/L Chloride Level 101 101-111 mmol/L Carbon Dioxide Level 29 21-32 mmol/L Blood Urea Nitrogen 23 H 7-18 mg/dL Creatinine 1.5 H 0.5-1.0 mg/dL Glomerular Filtration Rate Calc 34 >90 mL/min Random Glucose 93 70-105 mg/dL Total Calcium 8.7 8.5-10.1 mg/dL Troponin I High Sensitivity 31 4-50 ng/L Current Medications Medications (Trade) Dose Ordered Sig/Meggan Route PRN Reason Start Time Stop Time Status Last Admin Dose Admin Acetaminophen (TYLenol 325MG TAB) 650 mg Q4H PRN PO TEMPERATURE GREATER THAN 101.5 07/09/24 17:00 08/08/24 16:59 Acetaminophen (TYLenol 325MG TAB) 650 mg Q6H PRN PO MILD PAIN (1-3) 07/09/24 17:00 08/08/24 16:59 07/10/24 05:16 650 MG Bumetanide (Bumex 1mg Tab) 2 mg BID PO 07/11/24 21:00 08/10/24 20:59 07/11/24 20:26 2 MG Famotidine (Pepcid 20mg Tab) 20 mg DAILY PO 07/12/24 09:00 08/11/24 08:59 Heparin Sodium (Porcine) (HEParin 5,000 UNIT VIAL) 5,000 unit Q12H SQ 07/11/24 10:30 08/10/24 10:29 07/11/24 22:49 5,000 UNIT Home Med (Home Medication) Cholecalciferol (Vitamin D3) QWEEK PO 07/18/24 09:00 08/17/24 08:59 Ipratropium G[place]a (AtrovENT UD) 0.5 MG O1NUWEW IH 07/12/24 00:00 08/11/24 00:00 07/12/24 06:32 0.5 MG Levofloxacin/ Dextrose 50 ml @ 50 mls/hr Q48H IVPB 07/11/24 15:00 07/21/24 14:59 07/11/24 15:42 50 MLS/HR Levofloxacin/ Dextrose 100 ml @ 100 mls/hr Q24H IV 07/09/24 17:00 07/09/24 16:54 DC Levofloxacin/ Dextrose 100 ml @ 100 mls/hr Q24H STAT IV 07/09/24 14:25 07/09/24 15:24 DC 07/09/24 15:27 100 MLS/HR Metoprolol Tartrate (loprESSOR) 12.5 mg BID PO 07/11/24 21:00 08/10/24 20:59 07/11/24 20:26 12.5 MG Neomycin/ Polymyxin/ Bacitracin (Triple Antibiotic Ointment) BID TP 07/11/24 21:00 08/10/24 20:59 07/11/24 20:37 1 APPL Ondansetron HCl (zoFRAN 4MG INJ) 4 mg Q6H PRN IVP NAUSEA/VOMITING 07/09/24 17:00 08/08/24 16:59 Potassium Chloride 100 ml @ 50 mls/hr AD PRN IV POTASSIUM PROTOCOL 07/11/24 12:30 08/10/24 12:29 07/12/24 05:58 50 MLS/HR Pramipexole Dihydrochloride (miraPEX 0.25MG TAB) 0.125 mg HS PO 07/11/24 21:00 08/10/24 20:59 07/11/24 20:26 0.125 MG DIAGNOSTICS / RADIOLOGY: [ ] ASSESSMENT: [Sepsis, POA- T: 101.5, HR 20, source: lungs (PNA), creat:1.8 Urinary tract infection, POA Bilateral pulmonary infiltrates, maybe related to mild pulmonary vascular congestion, POA Acute on chronic kidney injury, POA Hyperglycemia, POA Chronic leukopenia, POA Chronic normocytic anemia, POA Underlying history of paroxysmal atrial fibrillation, POA History of chronic anticoagulation with Eliquis, POA Rule out diastolic heart failure exacerbation, POA History of venous insufficiency, POA Uncontrolled Hypertension, POA hyperlipidemia POA Hypothyroidism, POA Morbid Obesity, POA ] PLAN: [Admit to medical telemetry floor Continue with diuretics with Bumex 2 mg b.i.d. Continue with fluid restriction with 1.5 L, salt restriction We will follow up with speech therapy recommendations Appreciate nephrology eval C/w broad-spectrum IV antibiotics with Levaquin Urine culture came back positive with Klebsiella pneumoniae We will trend CBC and BMP daily Home medication has been reviewed and reconciled Patient is pending bedside swallow/speech therapy eval Discussed long-term insert nutrition with patient's son, they are pending final decision, patient was recommended NPO with PEG tube in the past Add when necessary meds for nausea, vomiting, pain, constipation, insomnia. GI and DVT prophylaxis Patient is a full code Case management with snf placement Patient was seen and examined [place] [address]ta, above plan was formulated] ATTESTATION BY PHYSICIAN I have seen and examined the patient. I reviewed the documentation, medical decision making, and treatment plan as noted by the mid-level provider above. I agree with the findings and plan of care. JESSICA BHAKTA MD, [facility]ICE B [facility] Jul 12, 2024 09:53
[2024-07-12] MEDS: FAMOTIDINE 20MG TAB PO SCH (09:56)
--- NOTE | 2024-07-12 10:09 | DS ---
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 Patient was evaluated in ED room three, patient is accompanied by no one, lab support tech translating for me as patient only speaks Faroese. Patient stated that she started having fevers in the last24 hours associated with cough. Patient's voices hoarse. She has history of squamous cell carcinoma of the tongue. Patient was recently discharged on 06/19/2024 after being hospitalized for six days, she was admitted due to bilateral lower extremity edema patient was on Bumex 2 mg b.i.d. today, she was evaluated in ED room three, she is a poor historian. Patient stated that she just barely been discharged not too long ago and now she is back to the hospital. A chest x-ray was done which showed mild bilateral pulmonary infiltrates seen maybe related to pulmonary vascular congestion with possible superimposed pneumonitis. Patient received Levaquin IV in the ED. further management has been recommended hence patient was admitted under the hospitalist team. While Hospitalized, patient was evaluate for urinary tract infection for which she came back positive with Klebsiella pneumoniae. Patient was also noted with aspiration pneumonia as she continued to take p.o. even though she was recommended NPO and long-term means of nutrition back in December. Due to history of tongue cancer patient is dysphasic, but family inpatient signed waiver to proceed with p.o. intake. Discussed re-evaluation for bedside swallow study for which patient and son agreed but regardless of the results if patient will need long-term means of nutrition, patient's son stated that they will not proceed with PEG tube. In that case, if patient gets accepted at half-way facility we will proceed with a transfer and she will continue with the IV antibiotic treatment for aspiration pneumonia and urinary tract infection. She will benefit to continue with Rehabilitation focusing on physical therapy for functional decline and deconditioning. Patient can be discharged today as she is in stable condition. Procedure(s): [place] [address] [place] [address] [id number] IMAGING REPORT Signed PATIENT: RAFAELA HOWELL MR#: [id number] : 1940 SEX: F AGE: 84 LOCATION: [facility] ORDER 22 STATUS: REG REPORT#: [id number] SERVICE 142 REASON: COUGH ORDERING PHYSICIAN: JOHNATHON WHITLEY MD PROCEDURE: CXR1VW - CHEST 1VW CHEST 1VW HISTORY: Cough COMPARISON: 06/13/2024 FINDINGS: A frontal projection of the chest was obtained. Mild bilateral pulmonary infiltrates are seen may be related to mild pulmonary vascular congestion with possible superimposed pneumonitis. The heart is normal in size. There is dextroscoliosis. Degenerative changes are seen. Aortic calcifications are seen. IMPRESSION: 1. Mild bilateral pulmonary infiltrates are seen may be related to mild pulmonary vascular congestion with possible superimposed pneumonitis. DICTATED BY: MONTANA STORM MD DATE: 07/09/241631 ELECTRONICALLY SIGNED BY: MONTANA STORM MD DATE: 07/09/24 1635 Assessment/Plan: Discharge Diagnoses: [Dysphagia, family refusing PEG, signed waiver for PO intake, hence risk for aspiration but family aware and understood outcome Aspiration pneumonia, POA Sepsis, POA- T: 101.5, HR 20, source: lungs (PNA), creat:1.8 Urinary tract infection, POA Bilateral pulmonary infiltrates, maybe related to mild pulmonary vascular congestion, POA Acute on chronic kidney injury, POA Hyperglycemia, POA Chronic leukopenia, POA Chronic normocytic anemia, POA Underlying history of paroxysmal atrial fibrillation, POA History of chronic anticoagulation with Eliquis, POA Rule out diastolic heart failure exacerbation, POA History of venous insufficiency, POA Uncontrolled Hypertension, POA hyperlipidemia POA Hypothyroidism, POA Morbid Obesity, POA ] Admitting Diagnoses: [Sepsis, POA- T: 101.5, HR 20, source: lungs (PNA), creat:1.8 Urinary tract infection, POA Bilateral pulmonary infiltrates, maybe related to mild pulmonary vascular congestion, POA Acute on chronic kidney injury, POA Hyperglycemia, POA Chronic leukopenia, POA Chronic normocytic anemia, POA Underlying history of paroxysmal atrial fibrillation, POA History of chronic anticoagulation with Eliquis, POA Rule out diastolic heart failure exacerbation, POA History of venous insufficiency, POA Uncontrolled Hypertension, POA hyperlipidemia POA Hypothyroidism, POA Morbid Obesity, POA ] PLAN: [Admit to medical telemetry floor Continue with diuretics with Bumex 2 mg b.i.d. Continue with fluid restriction with 1.5 L, salt restriction We will follow up with speech therapy recommendations Appreciate nephrology eval C/w broad-spectrum IV antibiotics with Levaquin Urine culture came back positive with Klebsiella pneumoniae We will trend CBC and BMP daily Home medication has been reviewed and reconciled Patient is pending bedside swallow/speech therapy eval Discussed long-term insert nutrition with patient's son, they are pending final decision, patient was recommended NPO with PEG tube in the past Add when necessary meds for nausea, vomiting, pain, constipation, insomnia. GI and DVT prophylaxis Patient is a full code Case management with snf placement Patient was seen and examined [place] [address] Medel, above plan was formulated] Discharge Instructions: Transfer to SNF once accepted Continue with IV antbx for 2 weeks Rehab to eval and treat Home Medications: Active Scripts Levofloxacin (Levofloxacin) 250 Mg Tablet, 1 TAB PO DAILY for 10 Days, #10 TAB 0 Refills Prov:SHERRI ALEXANDERZYNMyra Alba SENIOR FINANCIAL ACCOUNTANT 06/19/24 Neomy Sulf/Bacitrac Zn/Poly (Triple Antibiotic/Neosporin Oint) 3.5 Mg-400 Unit- 5,000 Unit/Gram Oint, 0 APPL TP BID, #1 TUBE apply TID to affected area Prov:JESI ALEXANDERRK Alba SENIOR FINANCIAL ACCOUNTANT 24 Metoprolol Tartrate (Lopressor) 25 Mg Tab, 12.5 MG PO BID, #60 TAB Prov:JESI ALEXANDERRK Alba SENIOR FINANCIAL ACCOUNTANT 06/19/24 Famotidine (Famotidine) 20 Mg Tablet, 20 MG PO DAILY, #60 TAB Prov:BENJAMINUDAY B SENIOR FINANCIAL ACCOUNTANT 24 Bumetanide (Bumetanide) 1 Mg Tablet, 2 MG PO BID, #60 TAB Prov:JESI ALEXANDERRK Alba SENIOR FINANCIAL ACCOUNTANT 24 Apixaban (Eliquis) 2.5 Mg Tablet, 2.5 MG PO BID for 30 Days, #60 TAB Prov:MIO SAUER Jr., MD 02/18/22 Reported Medications Pramipexole Di-HCl (Pramipexole Dihydrochloride) 0.125 Mg Tablet, 0.125 MG PO HS, TAB 06/13/24 Cholecalciferol (Vitamin D3) (Vitamin D3) 25 Mcg (1000 Unit) Capsule, 1 CAP PO QWEEK for 30 Days, #30 CAP 0 Refills 06/13/24 Acetaminophen (Acetaminophen) 500 Mg Tablet, 500 MG PO Q6HPRN, TAB 12/28/23 Omeprazole (Omeprazole) 20 Mg Capsule.dr, 20 MG PO DAILY, CAP 12/28/23 Levothyroxine Sodium (Levothyroxine Sodium) 137 Mcg Tablet, 137 MCG PO ACBKFST, TAB 12/28/23 Time spent arranging discharge: 31-60 minutes ATTESTATION BY PHYSICIAN I have seen and examined the patient. I reviewed the documentation, medical decision making, and treatment plan as noted by the mid-level provider above. I agree with the findings and plan of care. JESSICA MEDEL MD, [facility] Jul 12, 2024 10:09
--- NOTE | 2024-07-12 11:55 | NUR ---
CM Note: [facility] approval CM spoke to Marlee wharton/[facility], pt has approval, rep aware pt will need facility van for transfer. Primary nurse Adry made aware. Priya LINDSAY updated, says pending ST. CM to continue to follow up. Addendum: 07/12/24 at 1158 by ERIN HAAS LVN CM Amended: Links added.
--- NOTE | 2024-07-12 14:32 | PN ---
[facility] PROGRESS NOTE Date Patient Seen: Jul 12, 2024 Time of Visit: 14:32 Supervising Physician: Dr. Arnold Reason for Consultation: Aspiration Pneumonia Primary Care Physician: [ ] Outpatient Specialists: [ ] Inpatient Consults: [ ] PROBLEM LIST: Sepsis, POA- T: 101.5, HR 20, source: lungs (PNA), creat:1.8 Bilateral pulmonary infiltrates, maybe related to mild pulmonary vascular congestion, POA Acute on chronic kidney injury, POA Hyperglycemia, POA Chronic leukopenia, POA Chronic normocytic anemia, POA Underlying history of paroxysmal atrial fibrillation, POA History of chronic anticoagulation with Eliquis, POA Rule out diastolic heart failure exacerbation, POA History of venous insufficiency, POA Uncontrolled Hypertension, POA hyperlipidemia POA Hypothyroidism, POA Morbid Obesity, POA HPI: Patient is an 84-year-old female with a past medical history significant for atrial fibrillation, hypertension, hypothyroidism, as well as 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 Several months ago the patient had a bedside swallow an MBS performed which showed dysphagia with food passes into the airway. Upon evaluation and discussion with the family they are aware of this diagnosis, patient states that she feels she does not have long to live and does not want to undergo PEG tube, patient refuses to be placed on NPO status. She continues on levofloxacin at this time. Family's requested to be transferred to an SNF facility, primary team is placing orders for this at this time. We are consulted due to aspiration pneumonia and management of her airways. We have requested another speech evaluation for this admission, we agree with the administration of IV antibiotics. We will continue to monitor this patient while she is on the floor. 07/13 Patient was evaluated bedside today, she shows improvement in her cough and breathing at this time. Patient is currently on room air, she has been eating and drinking today states that she does not feel she has a problem at the moment with aspiration. Patient has been accepted to [facility] facility and we will be discharging today per primary team. We agree with the discharge on levofloxacin which will be continued at the rehab facility. Patient continues to decline option of PEG tube. REVIEW OF SYSTEMS: 12 point ROS reviewed with patient. Pertinent positives mentioned above. Otherwise negative. PHYSICAL EXAM: GENERAL: alert, weak, awake oriented x 3 HEENT: EOMI, Sclera non icteric, moist mucosa NECK: Supple, no JVD, trachea midline LUNGS: Clear breath sounds bilaterally. No wheezes HEART: Regular rate and rhythm. Normal S1 and S2, without murmurs ABD: Abdomen soft, nontender. Bowel sounds present EXT: No clubbing cyanosis or edema NEURO: Alert and oriented to person, follows commands Vital Signs (last 8hr) Date Time Temp Pulse Resp B/P (MAP) Pulse Ox O2 Delivery O2 Flow Rate FiO2 07/12/24 12:00 84 16 103/49 94 Room Air 07/12/24 11:12 75 18 N/A Room Air 07/12/24 11:11 75 18 07/12/24 08:00 98.2 75 16 102/46 94 Room Air 07/12/24 06:34 72 18 N/A Room Air 07/12/24 06:33 72 18 LABS: Hematology Labs: Test 07/12/24 05:27 Range/Units White Blood Count 3.2 L 4.8-10.8 K/uL Red Blood Count 3.37 L 4.00-5.50 MIL/uL Hemoglobin 10.3 L 12.0-16.0 g/dL Hematocrit 31.5 L 36-48 % Mean Corpuscular Volume 93.5 79-99 fL Mean Corpuscular Hemoglobin 30.6 27.0-33.0 pg Mean Corpuscular Hemoglobin Concent 32.7 32.0-36.0 g/dL Red Cell Distribution Width 14.4 11.0-15.5 % Platelet Count 159 130-400 K/uL Mean Platelet Volume 9.9 7.5-10.5 fL Nucleated Red Blood Cells 0.0 0.0-0.19 % Chemistry Labs: Test 07/12/24 11:32 07/12/24 05:27 07/11/24 11:36 Range/Units Whole Blood Glucose 110 70-110 MG/DL Sodium Level 140 136-145 mmol/L Potassium Level 3.8 3.5-5.1 mmol/L Chloride Level 101 101-111 mmol/L Carbon Dioxide Level 29 21-32 mmol/L Blood Urea Nitrogen 23 H 7-18 mg/dL Creatinine 1.5 H 0.5-1.0 mg/dL Glomerular Filtration Rate Calc 34 >90 mL/min Random Glucose 93 70-105 mg/dL Total Calcium 8.7 8.5-10.1 mg/dL Troponin I High Sensitivity 31 4-50 ng/L DIAGNOSTICS / RADIOLOGY RESULTS: [ ] PLAN NEURO: Minimize central acting medications as possible. Maintain fall precautions, adequate lighting during the day PULMONARY: Supplemental 02 as needed. Maintain aspiration precautions at all times CARDIOVASCULAR: Follow hemodynamics. Vital signs per facility protocol GI & NUTRITION: Continue with nutritional support. Continue stool softeners and laxatives as needed. KIDNEYS & ELECTROLYTES: Strict monitoring of intake, output and overall fluid balance. Avoid nephrotoxic medications to the extent possible. Medications to be dosed according to renal function. Monitor electrolytes and replace as needed ENDOCRINE: Maintain blood glucose between 100-180 at all times. Hypoglycemia protocol in place INFECTIOUS DISEASE: Trend temperature, WBC and procalcitonin level Follow cultures, deescalate antibiotics as soon as possible. Panculture if new onset fever ONCOLOGY/HEMATOLOGY/COAGULATION: Monitor for s/s of bleeding Monitor hemoglobin, coagulation studies as needed SKIN: Pressure ulcer prevention per facility protocol Specialty mattress ORTHO/REHAB: Continue PT/OT Prophylaxis: Continue GI and DVT prophylaxis Code Status: Full Resuscitation Disposition: TBD Other: Total patient care time exceeds 35 minutes excluding all procedures. LIZANDRO MCKEON Jul 12, 2024 14:32
--- NOTE | 2024-07-12 19:35 | NUR ---
SPOKE TO LAVONNE LINDSAY REGARDING PENDING DISCHARGE ORDERS. GAVE TELEPHONE ORDER TO DISCHARGE TO [facility]
--- NOTE | 2024-07-12 21:41 | NUR ---
discharge discharge paperwork done. report given to jami in [facility]. EMS took the patient at this time. IV on left upper arm was kept per jami's request to continue antibiotics. telemetry was removed. patient refused her night medications. belongings taken with her. Her son, Shad kee called and made aware of her departure. he is aware.
--- NOTE | 2024-07-13 16:07 | CONS ---
[facility] CONSULTATION NOTE The following note is being entered late, patient information below is regarding evaluation performed on 07/11/2024 Date Patient Seen: Jul 11, 2024 Time of Visit: 16:02 Supervising Physician: Dr. Aguilar Reason for Consultation: Aspiration Pneumonia Primary Care Physician: [ ] Outpatient Specialists: [ ] Inpatient Consults: [ ] PROBLEM LIST: Sepsis, POA- T: 101.5, HR 20, source: lungs (PNA), creat:1.8 Bilateral pulmonary infiltrates, maybe related to mild pulmonary vascular congestion, POA Acute on chronic kidney injury, POA Hyperglycemia, POA Chronic leukopenia, POA Chronic normocytic anemia, POA Underlying history of paroxysmal atrial fibrillation, POA History of chronic anticoagulation with Eliquis, POA Rule out diastolic heart failure exacerbation, POA History of venous insufficiency, POA Uncontrolled Hypertension, POA hyperlipidemia POA Hypothyroidism, POA Morbid Obesity, POA HPI: Patient is an 84-year-old female with a past medical history significant for atrial fibrillation, hypertension, hypothyroidism, as well as 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 Several months ago the patient had a bedside swallow an MBS performed which showed dysphagia with food passes into the airway. Upon evaluation and discussion with the family they are aware of this diagnosis, patient states that she feels she does not have long to live and does not want to undergo PEG tube, patient refuses to be placed on NPO status. She continues on levofloxacin at this time. Family's requested to be transferred to an SNF facility, primary team is placing orders for this at this time. We are consulted due to aspiration pneumonia and management of her airways. We have requested another speech evaluation for this admission, we agree with the admini stration of IV antibiotics. We will continue to monitor this patient while she is on the floor. PAST MEDICAL HX: see above PAST SURGICAL HX: noncontributory SOCIAL HISTORY: No tobacco, ETOH, or illicit drug use Coded Allergies: ceftriaxone (Verified Allergy, Intermediate, 12/28/23) Rash REVIEW OF SYSTEMS: 12 point ROS reviewed with patient. Pertinent positives mentioned above. Oth erwise negative. PHYSICAL EXAM: GENERAL: alert, weak, awake oriented x 3 HEENT: EOMI, Sclera non icteric, moist mucosa NECK: Supple, no JVD, trachea midline LUNGS: Clear breath sounds bilaterally. No wheezes HEART: Regular rate and rhythm. Normal S1 and S2, without murmurs ABD: Abdomen soft, nontender. Bowel sounds present EXT: No clubbing cyanosis or edema NEURO: Alert and oriented to person, follows commands LABS: Hematology Labs: Test 07/12/24 05:27 Range/Units White Blood Count 3.2 L 4.8-10.8 K/uL Red Blood Count 3.37 L 4.00-5.50 MIL/uL Hemoglobin 10.3 L 12.0-16.0 g/dL Hematocrit 31.5 L 36-48 % Mean Corpuscular Volume 93.5 79-99 fL Mean Corpuscular Hemoglobin 30.6 27.0-33.0 pg Mean Corpuscular Hemoglobin Concent 32.7 32.0-36.0 g/dL Red Cell Distribution Width 14.4 11.0-15.5 % Platelet Count 159 130-400 K/uL Mean Platelet Volume 9.9 7.5-10.5 fL Nucleated Red Blood Cells 0.0 0.0-0.19 % Chemistry Labs: Test 07/12/24 19:53 07/12/24 05:27 Range/Units Whole Blood Glucose 179 #H 70-110 MG/DL Sodium Level 140 136-145 mmol/L Potassium Level 3.8 3.5-5.1 mmol/L Chloride Level 101 101-111 mmol/L Carbon Dioxide Level 29 21-32 mmol/L Blood Urea Nitrogen 23 H 7-18 mg/dL Creatinine 1.5 H 0.5-1.0 mg/dL Glomerular Filtration Rate Calc 34 >90 mL/min Random Glucose 93 70-105 mg/dL Total Calcium 8.7 8.5-10.1 mg/dL DIAGNOSTICS / RADIOLOGY RESULTS: [ ] PLAN NEURO: Minimize central acting medications as possible. Maintain fall precautions, adequate lighting during the day PULMONARY: Supplemental 02 as needed. Maintain aspiration precautions at all times CARDIOVASCULAR: Follow hemodynamics. Vital signs per facility protocol GI & NUTRITION: Continue with nutritional support. Continue stool softeners and laxatives as needed. KIDNEYS & ELECTROLYTES: Strict monitoring of intake, output and overall fluid balance. Avoid nephrotoxic medications to the extent possible. Medications to be dosed according to renal function. Monitor electrolytes and replace as needed ENDOCRINE: Maintain blood glucose between 100-180 at all times. Hypoglycemia protocol in place INFECTIOUS DISEASE: Trend temperature, WBC and procalcitonin level Follow cultures, deescalate antibiotics as soon as possible. Panculture if new onset fever ONCOLOGY/HEMATOLOGY/COAGULATION: Monitor for s/s of bleeding Monitor hemoglobin, coagulation studies as needed SKIN: Pressure ulcer prevention per facility protocol Specialty mattress ORTHO/REHAB: Continue PT/OT Prophylaxis: Continue GI and DVT prophylaxis Code Status: Full Resuscitation Disposition: TBD Other: Total patient care time exceeds 35 minutes excluding all procedures. LIZANDRO MCKEON Jul 13, 2024 16:07
[2024-07-18] MEDS ORDERED: Cholecalciferol (Vitamin D3) PO SCH (09:00)
== END 2024-07-12 21:42 | DRG 871 ==
LOC: EDH 14:14 → EDHIP 16:25 → 4DH 07-10 18:05
PROVIDERS: ADMIT Internal Medicine; ATTEND Internal Medicine
DX: A41.9 Sepsis, unspecified organism (principal); I50.33 Acute on chronic diastolic (congestive) heart failure; J18.9 Pneumonia, unspecified organism; N39.0 Urinary tract infection, site not specified; I13.0 Hypertensive heart and chronic kidney disease with heart failure and stage 1 through stage 4 chronic kidney disease, or unspecified chronic kidney disease; N17.9 Acute kidney failure, unspecified; N18.32 Chronic kidney disease, stage 3b; E11.22 Type 2 diabetes mellitus with diabetic chronic kidney disease; E11.65 Type 2 diabetes mellitus with hyperglycemia; D64.9 Anemia, unspecified; B96.1 Klebsiella pneumoniae [K. pneumoniae] as the cause of diseases classified elsewhere; B96.20 Unspecified Escherichia coli [E. coli] as the cause of diseases classified elsewhere; E03.9 Hypothyroidism, unspecified; E66.01 Morbid (severe) obesity due to excess calories; E78.00 Pure hypercholesterolemia, unspecified; G25.81 Restless legs syndrome; G47.00 Insomnia, unspecified; I25.10 Atherosclerotic heart disease of native coronary artery without angina pectoris; I48.0 Paroxysmal atrial fibrillation; Z96.641 Presence of right artificial hip joint; M10.9 Gout, unspecified; Z79.01 Long term (current) use of anticoagulants; Z82.49 Family history of ischemic heart disease and other diseases of the circulatory system; Z88.8 Allergy status to other drugs, medicaments and biological substances; Z85.810 Personal history of malignant neoplasm of tongue; Z87.01 Personal history of pneumonia (recurrent); Z92.21 Personal history of antineoplastic chemotherapy; Z90.49 Acquired absence of other specified parts of digestive tract; Z68.32 Body mass index [BMI] 32.0-32.9, adult
CPT/HCPCS: 36415; 71045; 80048; 80053; 81001; 82550; 82948; 83036; 83605; 84484; 85025; 85027; 87040; 87071; 87086; 87186; 87205; 87635; 87804; 93005; 94640; 96365; 96366; 99291; G0378; J1644; J1956; J3480; J7030; Q2035; Q2038

== ENCOUNTER 2024-07-30 18:12 | Emergency (ER) | payer OTHER, MEDICARE ==
[~2024-07-30] VITALS: Ht 165.1 cm; Wt 83.9 kg
[2024-07-30 18:26] VITALS: TEMP 97.8
--- NOTE | 2024-07-30 18:48 | ERN ---
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 Patient is poor historian but according to nursing staff patient was unable to swallow her medications today as usual. Patient has also been having some cough but no fevers reported. Nursing homes concern for aspiration pneumonia. Patient reports sore throat but no other complaints. Allergies: Coded Allergies: ceftriaxone (Verified Allergy, Intermediate, 12/28/23) Rash Home Meds Active Scripts Levofloxacin (Levofloxacin) 250 Mg Tablet, 1 TAB PO DAILY for 10 Days, #10 TAB 0 Refills Prov:UDAY ALEXANDER [employer] PROFESSIONAL 06/19/24 Neomy Sulf/Bacitrac Zn/Poly (Triple Antibiotic/Neosporin Oint) 3.5 Mg-400 Unit- 5,000 Unit/Gram Oint, 0 APPL TP BID, #1 TUBE apply TID to affected area Prov:UDAY ALEXANDER [employer] PROFESSIONAL 06/19/24 Metoprolol Tartrate (Lopressor) 25 Mg Tab, 12.5 MG PO BID, #60 TAB Prov:LORENZOUDAY READ [employer] SERVICES PROFESSIONAL 06/19/24 Famotidine (Famotidine) 20 Mg Tablet, 20 MG PO DAILY, #60 TAB Prov:UDAY ALEXANDER [employer] PROFESSIONAL 24 Bumetanide (Bumetanide) 1 Mg Tablet, 2 MG PO BID, #60 TAB Prov:LORENZOUDAY READ [employer] SERVICES PROFESSIONAL 24 Apixaban (Eliquis) 2.5 Mg Tablet, 2.5 MG PO BID for 30 Days, #60 TAB Prov:MIO SAUER Jr., MD 02/18/22 Reported Medications Pramipexole Di-HCl (Pramipexole Dihydrochloride) 0.125 Mg Tablet, 0.125 MG PO HS, TAB 06/13/24 Cholecalciferol (Vitamin D3) (Vitamin D3) 25 Mcg (1000 Unit) Capsule, 1 CAP PO QWEEK for 30 Days, #30 CAP 0 Refills 06/13/24 Acetaminophen (Acetaminophen) 500 Mg Tablet, 500 MG PO Q6HPRN, TAB 12/28/23 Omeprazole (Omeprazole) 20 Mg Capsule.dr, 20 MG PO DAILY, CAP 12/28/23 Levothyroxine Sodium (Levothyroxine Sodium) 137 Mcg Tablet, 137 MCG PO ACBKFST, TAB 12/28/23 Past Medical History Past Medical History: A-Fib, Anemia, Diabetes-Type II, High Cholesterol, Other Additional Past Medical Hx: LIVER CIRRHOSIS, VENOUS INSUFFICIENCY, SEPSIS, DYSPHAGIA Surgical History: Cholecystectomy, Other Surgical History Other: R KNEE, TONGUE SX, BACK SX Social History: Lives with family, Other History: Not Applicable RN Note Reviewed/Agreed w/PFSH: Yes Review of System Dictation Constitutional: Negative for fever,chills, and weight loss Eyes: Negative for injury, pain,redness, and discharge ENT: Negative for injury,pain or swelling positive for sore throat Cardiovascular: Negative for chest pain, palpitations, and edema Respiratory: Negative for shortness of breath, and wheezing, positive for cough Abdomen/GI: Negative for abdominal pain, nausea, vomiting, diarrhea, and con stipation Back: Negative for injury and pain : Negative for injury, bleeding and discharge MS/Extremity: Negative for injury and deformity Skin: Negative for rash, and discoloration Neuro: Negative for headache, weakness, numbness, tingling, and seizure Psych: Negative for suicide ideation, homicidal ideation, and hallucinations Initial Vital Sign VS Vital Signs Date Time Temp Pulse Resp B/P (MAP) Pulse Ox O2 Delivery O2 Flow Rate FiO2 07/30/24 18:13 97.9 96 24 115/54 96 Nasal Cannula 2.0 07/30/24 18:26 28 Physical Exam Dictation Vital Signs reviewed General Appearance: Alert, oriented x 2, no acute distress, well developed, nourished. Head and Face: non-traumatic. Eyes: PERRL, pink conjunctivas, eyelid no trauma, anterior chamber with arcus senilis. Ears: Pinnas intact and no signs of trauma or erythema ear canals clear and no discharge TM no erythema Nose: No discharge, no bleeding. Oropharynx: Mouth normal, tongue pink. pharynx clear, slight erythema, tonsils no exudates, no abscesses noted, mucous membrane moist Neck: Supple, non-tender, no thyromegaly, no masses, no JVD, no bruits Breast:Deferred Chest:No tenderness, no crepitus, no paradoxical movement, no retractions Lungs:Clear, well-ventilated, symmetric, no rales, no wheezing, no rhonchi, no stridor, good breath sounds bilaterally Heart: Regular rate, regular rhythm, no murmur, no gallops Vascular: no peripheral edema, Abdomen: Soft, positive bowel sounds, nondistended, no guarding, nontender, no rebound, no masses no hepatomegaly, no splenomegaly, no Patel's sign, no hernias. Rectal: Deferred Genital: Deferred Neurological: Normal speech, motor function intact, sensory function intact Musculoskeletal: Neck nontender, full range of motion, back nontender, full range of motion, Extremities: nontender, full range of motion Skin: Color pink, dry, no turgor, no rash, no lacerations, no abrasions, no contusions. Lymphatic: Deferred Results (Laboratory/Radiology) Laboratory/Radiology Laboratory Tests Test 07/30/24 18:39 07/30/24 18:54 07/30/24 20:48 Influenza Type A Antigen Negative For Type A Influenza Type B Antigen Negative For Type B SARS-CoV-2 Antigen (Rapid) PRESUMPTIVE NEGATIVE Group A Streptococcus Rapid negative (NEGATIVE) White Blood Count 6.3 K/uL (4.8-10.8) Red Blood Count 3.82 MIL/uL (4.00-5.50) L Hemoglobin 11.5 g/dL (12.0-16.0) L Hematocrit 35.7 % (36-48) L Mean Corpuscular Volume 93.5 fL (79-99) Mean Corpuscular Hemoglobin 30.1 pg (27.0-33.0) Mean Corpuscular Hemoglobin Concent 32.2 g/dL (32.0-36.0) Red Cell Distribution Width 15.8 % (11.0-15.5) H Platelet Count 259 K/uL (130-400) Mean Platelet Volume 9.4 fL (7.5-10.5) Immature Granulocyte % (Auto) 0.2 % (0-1) Neutrophils (%) (Auto) 72.8 % (40.0-77.0) Lymphocytes (%) (Auto) 15.1 % (21.0-51.0) L Monocytes (%) (Auto) 9.0 % (3.0-13.0) Eosinophils (%) (Auto) 2.4 % (0.0-8.0) Basophils (%) (Auto) 0.5 % (0.0-5.0) Neutrophils # (Auto) 4.6 K/uL (1.8-7.7) Lymphocytes # (Auto) 1.0 K/uL (1.0-4.8) Monocytes # (Auto) 0.6 K/uL (0.1-1.0) Eosinophils # (Auto) 0.15 K/uL (0.00-0.70) Basophils # (Auto) 0.03 K/uL (0.00-0.20) Absolute Immature Granulocyte (auto 0.01 K/uL (0-1) Nucleated Red Blood Cells 0.0 % (0.0-0.19) Sodium Level 141 mmol/L (136-145) Potassium Level 3.7 mmol/L (3.5-5.1) Chloride Level 100 mmol/L (101-111) L Carbon Dioxide Level 34 mmol/L (21-32) H Blood Urea Nitrogen 21 mg/dL (7-18) H Creatinine 1.4 mg/dL (0.5-1.0) H Glomerular Filtration Rate Calc 37 mL/min (>90) Random Glucose 116 mg/dL (70-105) H Total Calcium 9.7 mg/dL (8.5-10.1) Lactic Acid Level 2.0 mmol/L (0.8-2.5) Labs Reviewed?: Yes EKG: (+) rhythm (Atrial fibrillation), (+) IL EKG Comment: EKG 07/30/2024 1934 ventricular rate 104, regular rate and rhythm, atrial fibrillation, no STEMI ED Course ED Course Orders Procedure Category Date Status Time Cbc With Differential LAB 07/30/24 Complete 18:32 Basic Metabolic Panel LAB 07/30/24 Complete 18:32 Chest 1vw RAD 07/30/24 Resulted 18:32 Covid19 (Sars Antigen LAB 07/30/24 Complete Rapid) 18:32 Influenza Type A & B, LAB 07/30/24 Complete Rapid 18:32 Ct Neck Soft Tiss W/O CT 07/30/24 Resulted Contrast 18:32 Rapid (Group A Strep) LAB 07/30/24 Complete 18:32 12 Lead Ekg Tracing- EKG 07/30/24 Logged Technical 19:08 Nothing By Mouth DIET 07/31/24 Transmitted Breakfast Blood Cult CHASTITY 07/30/24 In Process 20:21 Ketorolac PHA 07/30/24 Complete Tromethamine 15mg/Ml 21:00 Levofloxacin 750 PHA 07/30/24 Complete Mg/D5w 150 Ml 21:00 Vancomycin 1g/250ml PHA 07/30/24 In Process Kit (Vancomycin 1g/2 21:00 Methylprednisolone PHA 07/30/24 Complete Succ 125mg (Solu-Medr 21:00 0.9%Nacl 1000ml (Ns PHA 07/30/24 In Process 1000ml) 21:00 Lactic Acid LAB 07/30/24 Complete 20:42 Levofloxacin 500 PHA 07/30/24 In Process Mg/D5w 100 Ml 22:30 Levofloxacin 250 PHA 07/31/24 In Process Mg/D5w 50ml (Levaquin 09:00 Current Medications Medications (Trade) Dose Ordered Sig/Meggan Route PRN Reason Start Time Stop Time Status Last Admin Dose Admin Ketorolac Tromethamine (toRADol) 15 mg ONCE ONCE IV 07/30/24 21:00 07/30/24 21:01 DC 07/30/24 21:02 Levofloxacin/ Dextrose 50 ml @ 100 mls/hr DAILY IVPB 07/31/24 09:00 08/10/24 08:59 Levofloxacin/ Dextrose 100 ml @ 100 mls/hr Q24H IV 07/30/24 22:30 08/09/24 22:29 Levofloxacin/ Dextrose 150 ml @ 100 mls/hr ONCE ONCE IV 07/30/24 21:00 07/30/24 22:18 DC Methylprednisolone Sodium Succinate (Solu-medROL 125MG) 125 mg ONCE ONCE IVP 07/30/24 21:00 07/30/24 21:01 DC 07/30/24 21:01 Sodium Chloride 1,000 ml @ 75 mls/hr [id number] IV 07/30/24 21:00 08/29/24 20:59 07/30/24 21:02 Vancomycin HCl 250 ml @ 125 mls/hr ONCE ONCE IV 07/30/24 21:00 07/30/24 22:59 07/30/24 21:02 Vital Signs Date Time Temp Pulse Resp B/P (MAP) Pulse Ox O2 Delivery O2 Flow Rate FiO2 07/30/24 19:40 72 17 96/54 100 Nasal Cannula* 2 28 07/30/24 18:26 97.9 96 22 115/54 96 Nasal Cannula* 2 28 07/30/24 18:13 97.9 96 24 115/54 96 Nasal Cannula 2.0 Medical Decision Making MDM The patient is an 84-year-old female with a history of AFib, dysphagia, hyperlipidemia, pneumonia, diabetes, hypertension who presents to the emergency department after being sent from [facility] for evaluation of dysphagia. Patient is poor historian but according to nursing staff patient was unable to swallow her medications today as usual. Patient has also been having some cough but no fevers reported. Nursing homes concern for aspiration pneumonia. Patient reports sore throat but no other complaints. Gathered more information from patient's son. According to son patient has been having a cough for awhile. Reports that patient was sent here to be evaluated for a swallow evaluation that could not be done in the long-term for the until five days from now. CBC showed no leukocytosis, mild normocytic anemia, chemistry showed mild hypochloremia, GFR 37, elevated BUN and creatinine but similar to previous admissions, serology negative. Chest x-ray unremarkable, CT neck showed diffuse thickening of the glottic and subglottic tissues. Possibility of diffuse inflammation versus diffuse neoplastic process. Patient was treated for epiglottitis in ER. Patient currently in no acute distress, O2 saturations at baseline with oxygen2 L chronically used. Patient able to head to secretions, no drooling. Patient will be transferred to [facility] for further evaluation. Differential diagnosis: Strep throat, upper respiratory infection, dysphagia, electrolyte imbalance, pneumonia, aspiration pneumonia, throat mass Comorbidities: AFib, anemia, dysphagia, generalized anxiety, diabetes, pneumonia, CKD, Parkinson's Tests considered and not ordered secondary to shared decision making include: none Previous outside records reviewed: none Risk of complication and/or morbidity or mortality of patient management: The patient meets criteria for admission. Need for emergency major/minor surgery: No There are no social concerns with this patient. I independently interpreted the tests I ordered (labs, urinalysis, etc.). I discussed the case with the hospitalist for admission. I discussed the case with the following specialists: Dr. Karma MACKENZIE who accepts transfer Historian: [email or web address]. son I independently interpreted imaging studies and EKGs that I ordered (US, CT, XR, EKG, etc.). External chart review: none. Medical management and examination interpretation discussions were had by me with other qualified healthcare professionals as indicated for the patient's care. DX & DISP Disposition: Transfer Decision to Admit Date: Jul 30, 2024 Decision to Admit Time: 22:47 Departure Impression: Primary Impression: Epiglottitis Additional Impressions: Dysphagia, CKD (chronic kidney disease), History of tongue cancer Condition: Stable Referrals: LAURENCE BELLO MD (PCP) I have reviewed the case, and I agree with, Diagnosis and Plan ROHAN HERMANP Jul 30, 2024 18:48
[2024-07-30 19:03] LABS: BASOPHILS # (AUTO) 0.03 K/uL (0.00-0.20); BASOPHILS % (AUTO) 0.5 % (0.0-5.0); EOSINOPHILS # (AUTO) 0.15 K/uL (0.00-0.70); EOSINOPHILS % (AUTO) 2.4 % (0.0-8.0); HEMATOCRIT 35.7 % (36-48); IMMATURE GRANULOCYTE ABSOLUTE 0.01 K/uL (0-1); LYMPHOCYTES % (AUTO) 15.1 % (21.0-51.0); MEAN CORPUSCULAR HEMOGLOBIN 30.1 pg (27.0-33.0); MEAN CORPUSCULAR HGB CONC 32.2 g/dL (32.0-36.0); MEAN CORPUSCULAR VOLUME 93.5 fL (79-99); MONOCYTES # (AUTO) 0.6 K/uL (0.1-1.0); NEUTROPHILS # (AUTO) 4.6 K/uL (1.8-7.7); NEUTROPHILS % (AUTO) 72.8 % (40.0-77.0); PLATELET COUNT (AUTO) 259 K/uL (130-400); RED BLOOD CELL COUNT(AUTO) 3.82 MIL/uL (4.00-5.50); RED CELL DISTRIBUTION WIDTH 15.8 % (11.0-15.5); WHITE BLOOD COUNT (AUTO) 6.3 K/uL (4.8-10.8)
[2024-07-30 19:04] LABS: RAPID GROUP A STREP negative (NEGATIVE)
[2024-07-30 19:13] LABS: INFLUENZA TYPE A Negative For Type A (NEGATIVE); INFLUENZA TYPE B Negative For Type B (NEGATIVE)
[2024-07-30 19:14] LABS: COVID19 (SARS ANTIGEN RAPID) PRESUMPTIVE NEGATIVE (NEGATIVE)
[2024-07-30 19:21] LABS: CREATININE 1.4 mg/dL (0.5-1.0); POTASSIUM 3.7 mmol/L (3.5-5.1)
--- NOTE | 2024-07-30 19:28 | HMCIMG ---
Exam Type: CHEST 1VW Clinical Information: cough Comparison: None Findings: The lungs are clear of infiltrates. The heart is normal in size. The bony and soft tissue structures of the chest are unremarkable. Impression: Clear lungs.
--- NOTE | 2024-07-30 19:50 | HMCIMG ---
Exam Type: CT NECK SOFT TISS W/O CONTRAST Clinical Information: unable to swallow Comparison: None Findings and impression: Diffuse thickening of glottic and subglottic tissues with possible involvement of the tonsils. Possibility of diffuse inflammation versus a diffuse neoplastic process must be entertained. Epiglottis appears inflamed as well. The airway below this level appears intact. No other abnormalities are seen and there are no fluid collections. Impression: Finding findings as noted above. Cannot exclude acute epiglottitis. Jaida at ER and subsequently the referring physician at the emergency room were notified of findings at 7:45 PM.
[2024-07-30] MEDS ORDERED: levoFLOXacin 750 MG/D5W 150 ML 150 ML IV ONE (21:00)
[2024-07-30] MEDS: Solu-medROL 125MG VIAL IVP ONE (21:01)
[2024-07-30] MEDS: VANCOMYCIN 1G/250ML KIT 250 ML IV ONE (21:02)
[2024-07-30] MEDS: 0.9%NACL 1000ML 1,000 ML IV SCH (21:02)
[2024-07-30] MEDS: ketOROlac 15MG/ML VIAL (15MG/ML) IV ONE (21:02)
--- NOTE | 2024-07-30 21:28 | NUR ---
TRANSFER CALL PLACED TO [facility] PUBLIC WORKS TECHNICIAN TO INITIATE TRANSFER FOR ENT SERVICES
[2024-07-30] MEDS: levoFLOXacin 500 MG/D5W 100 ML 100 ML IV SCH (23:23)
--- NOTE | 2024-07-30 23:47 | NUR ---
TRANSFER PT. ACCEPTED @ 2229 BY DEMARCUS DEL ROSARIO MD @ 2230 [place] [facility] [place] AT THIS TIME: 1437. REPORT: [phone].
--- NOTE | 2024-07-30 23:57 | NUR ---
[facility] CALLED FOR TRANSPORT
--- NOTE | 2024-07-31 00:03 | NUR ---
BARBIE HOWELL ([facility]) [phone]
--- NOTE | 2024-07-31 00:27 | NUR ---
REPORT GIVEN TO [facility] [place] [facility] [place]
[2024-07-31 00:45] VITALS: BP 104/48; PULSE 98; RESP 19; O2SAT 97
--- NOTE | 2024-07-31 00:46 | NUR ---
REPORT NUMBER [phone] [place] [id number]
--- NOTE | 2024-07-31 00:48 | NUR ---
PT LEFT ED VIA EMS AT THIS TIME, PT SHOWS NO SIGNS OF DISTRESS.
--- NOTE | 2024-07-31 06:24 | EKG ---
[facility] Test Date: 2024-07-30 Test Time: 19:34:05 Pat Name: RAFAELA HOWELL Department: [facility] Room: Gender: F Roller Operator: [id number] : 1940 Requested By: ROHAN HERMAN Order Number: [id number] Reading MD: Kenny Montoya Measurements Intervals [place] Rate: 104 P: 0 DE: 0 QRS: -72 QRSD: 98 T: 33 QT: 379 QTc: 499 Interpretive Statements Atrial fibrillation Left anterior fascicular block Compared to ECG 07/11/2024 11:22:06 Sinus rhythm no longer present Electronically Signed On 08-01-2024 13:59:12 [employer] OPER[employer] by Kenny Montoya Please click the below link to view image of tracing.
[2024-07-31] MEDS ORDERED: levoFLOXacin 250 MG/D5W 50ML 50 ML IVPB SCH (09:00)
== END 2024-07-31 00:48 | disposition short-term general hospital (02) ==
LOC: EDH 18:12
DX: J05.10 Acute epiglottitis without obstruction (principal); R13.10 Dysphagia, unspecified; I12.9 Hypertensive chronic kidney disease with stage 1 through stage 4 chronic kidney disease, or unspecified chronic kidney disease; E11.22 Type 2 diabetes mellitus with diabetic chronic kidney disease; N18.9 Chronic kidney disease, unspecified; E78.00 Pure hypercholesterolemia, unspecified; I48.91 Unspecified atrial fibrillation; Z79.01 Long term (current) use of anticoagulants; Z79.899 Other long term (current) drug therapy; Z88.1 Allergy status to other antibiotic agents; Z90.49 Acquired absence of other specified parts of digestive tract; Z20.822 Contact with and (suspected) exposure to COVID-19
CPT/HCPCS: 99285; 96365; 70490; 96375; 71045; 96367; 87426; 80048; 85025; 87040 ×2; 87880; 87804 ×2; 83605; 36415; 93005; J1956; J7030; J2919; J3370; J1885